=== PATIENT | male | born 1950 | race Caucasian/White ===

== ENCOUNTER 2018-09-30 14:11 | Emergency (ER) | payer MEDICARE ==
[~2018-09-30 14:11] MED LIST: PANT40TA PO
[2018-09-30] MEDS ORDERED: TETANUS/DIPHTHERIA TOXOID [ADULT] 0.5 ML VIAL IM ONE (14:50)
[2018-09-30] MEDS ORDERED: LIDOCAINE HCL 1% 20 ML VIAL ONE (14:50)
== END 2018-09-30 15:51 | disposition home or self-care (01) ==
LOC: EDH 14:11
DX: S01.01XA Laceration without foreign body of scalp, initial encounter (principal); K21.9 Gastro-esophageal reflux disease without esophagitis; Z87.891 Personal history of nicotine dependence; W22.8XXA Striking against or struck by other objects, initial encounter; Y93.89 Activity, other specified; Y92.098 Other place in other non-institutional residence as the place of occurrence of the external cause; Y99.8 Other external cause status
CPT/HCPCS: 12002; 70450; 90471; 90714

== ENCOUNTER 2018-12-09 19:17 | Emergency (ER) | payer MEDICARE ==
[2018-12-09] MEDS ORDERED: METOCLOPRAMIDE 10 MG/2 ML VIAL ONE (19:55)
[2018-12-09] MEDS ORDERED: ONDANSETRON HCL 4 MG/2 ML VIAL ONE (19:56)
[2018-12-09] MEDS ORDERED: FAMOTIDINE/PF 20 MG/2 ML VIAL IV ONE (19:56)
[2018-12-09 20:02] LABS: BASOPHILS % (AUTO) 0.3 % (0.0-5.0); EOSINOPHILS % (AUTO) 0.7 % (0.0-8.0); HEMATOCRIT 47.7 % (42-54); LYMPHOCYTES % (AUTO) 3.9 % (21.0-51.0); MEAN CORPUSCULAR HEMOGLOBIN 28.4 pg (27.0-33.0); MEAN CORPUSCULAR HGB CONC 33.5 g/dL (32.0-36.0); MEAN CORPUSCULAR VOLUME 84.9 fL (79-99); MONOCYTES % (AUTO) 3.9 % (3.0-13.0); NEUTROPHILS % (AUTO) 91.2 % (40.0-77.0); PLATELET COUNT (AUTO) 199 K/uL (130-400); RED BLOOD CELL COUNT(AUTO) 5.62 MIL/uL (4.50-6.20); RED CELL DISTRIBUTION WIDTH 13.9 % (11.0-15.5); WHITE BLOOD COUNT (AUTO) 12.6 K/uL (4.8-10.8)
[2018-12-09] MEDS ORDERED: PANTOPRAZOLE 40 MG/VIAL IVP ONE (20:05)
[2018-12-09] MEDS ORDERED: SODIUM CHLORIDE 0.9% 1000ML 1,000 ML IV ONE ×2 (20:06→20:59)
[2018-12-09 20:15] LABS: CREATININE 1.1 mg/dL (0.5-1.5); POTASSIUM 3.8 mmol/L (3.5-5.1)
[2018-12-09 20:21] LABS: ALBUMIN 3.9 g/dL (3.5-5.0); BILIRUBIN,TOTAL 1.1 mg/dL (0.2-1.0); TOTAL PROTEIN, SERUM 7.4 g/dL (6.0-8.3)
[2018-12-09 20:24] LABS: INR 0.98 (0.85-1.15); PARTIAL THROMBOPLASTIN TIME 26.4 SEC (26.3-35.5); PROTHROMBIN TIME 10.3 SEC (9.6-11.6)
[2018-12-09 20:42] LABS: APPEARANCE,URINE Clear (CLEAR); BILIRUBIN,URINE Negative (NEGATIVE); COLOR,URINE Dark Yellow (YELLOW); GLUCOSE, URINE (UA) 250 mg/dL (NEGATIVE); KETONES,URINE Negative (NEGATIVE); LEUKOCYTE ESTERASE ,URINE Trace (NEGATIVE); NITRATE,URINE Negative (NEGATIVE); OCCULT BLOOD,URINE Negative (NEGATIVE); PH,URINE 8.5 (5.0-8.0); PROTEIN,URINE Trace mg/dL (NEGATIVE)
[2018-12-09] MEDS ORDERED: ACETAMINOPHEN EXTRA STRENGTH 500 MG TABLET ONE (21:00)
[2018-12-09 21:02] LABS: BACTERIA,URINE Rare /HPF (None Seen); RBC,URINE None Seen /HPF (0-1); SQUAMOUS EPITHELIAL CELL,UR None Seen /HPF (0-2)
[2018-12-09] MEDS ORDERED: CEFTRIAXONE SODIUM 1 GM ONE (21:40)
== END 2018-12-09 23:12 | disposition home or self-care (01) ==
LOC: EDH 19:17
DX: E86.9 Volume depletion, unspecified (principal); R11.2 Nausea with vomiting, unspecified; R19.7 Diarrhea, unspecified; R82.71 Bacteriuria; K21.9 Gastro-esophageal reflux disease without esophagitis; Z72.0 Tobacco use
CPT/HCPCS: 36415; 80053; 81001; 82550; 83605 ×2; 83690; 83735; 84484; 85025; 85610; 85730; 96361; 96374; 96375; 99285; C9113; J0696; J2405; J2765; J3490; J7030 ×2

== ENCOUNTER 2019-07-31 16:05 | Emergency (ER) | payer MEDICARE ==
[2019-07-31 16:33] LABS: BASOPHILS % (AUTO) 0.6 % (0.0-5.0); EOSINOPHILS % (AUTO) 3.2 % (0.0-8.0); HEMATOCRIT 43.5 % (42-54); MEAN CORPUSCULAR HGB CONC 33.1 g/dL (32.0-36.0); MEAN CORPUSCULAR VOLUME 84.5 fL (79-99); MONOCYTES % (AUTO) 8.1 % (3.0-13.0); NEUTROPHILS % (AUTO) 84.7 % (40.0-77.0); PLATELET COUNT (AUTO) 189 K/uL (130-400); RED BLOOD CELL COUNT(AUTO) 5.15 MIL/uL (4.50-6.20); RED CELL DISTRIBUTION WIDTH 13.1 % (11.0-15.5); WHITE BLOOD COUNT (AUTO) 7.2 K/uL (4.8-10.8)
[2019-07-31] MEDS ORDERED: ONDANSETRON HCL 4 MG/2 ML VIAL ONE ×2 (16:37→20:00)
[2019-07-31] MEDS ORDERED: SODIUM CHLORIDE 0.9% 1000ML 1,000 ML IV ONE ×2 (16:38→18:23)
[2019-07-31 16:51] LABS: CREATININE 1.2 mg/dL (0.5-1.5); POTASSIUM 3.8 mmol/L (3.5-5.1)
[2019-07-31 16:59] LABS: ALBUMIN 3.7 g/dL (3.5-5.0); BILIRUBIN,DIRECT 0.1 mg/dL (0.0-0.3); BILIRUBIN,TOTAL 0.4 mg/dL (0.2-1.0); TOTAL PROTEIN, SERUM 7.1 g/dL (6.0-8.3)
[2019-07-31] MEDS ORDERED: ACETAMINOPHEN EXTRA STRENGTH 500 MG TABLET ONE (17:33)
[2019-07-31] MEDS ORDERED: OSELTAMIVIR PHOSPHATE 75 MG CAP ONE (18:22)
[2019-07-31] MEDS ORDERED: KETOROLAC TROMETHAMINE 15MG/ML ONE (18:22)
[2019-07-31 19:03] LABS: BILIRUBIN,URINE Negative (NEGATIVE); COLOR,URINE Yellow (YELLOW); GLUCOSE, URINE (UA) 250 mg/dL (NEGATIVE); KETONES,URINE Negative (NEGATIVE); LEUKOCYTE ESTERASE ,URINE Negative (NEGATIVE); NITRATE,URINE Negative (NEGATIVE); OCCULT BLOOD,URINE Negative (NEGATIVE); PH,URINE 5.5 (5.0-8.0); PROTEIN,URINE POS 1+ mg/dL (NEGATIVE); UROBILINOGEN,URINE 0.2 mg/dL (0.2-1.0)
[2019-07-31 19:29] LABS: APPEARANCE,URINE SLIGHTLY CLOUDY (CLEAR)
[2019-07-31 19:33] LABS: AMORPHOUS SEDIMENT,UR Few /LPF (None Seen); BACTERIA,URINE Rare /HPF (None Seen); MUCUS,URINE Few LPF (None Seen); RBC,URINE None Seen /HPF (0-1); SQUAMOUS EPITHELIAL CELL,UR None Seen /HPF (0-2); WBC,URINE 0-1 /HPF (0-1)
== END 2019-07-31 21:35 | disposition home or self-care (01) ==
LOC: EDH 16:05
DX: J09.X2 Influenza due to identified novel influenza A virus with other respiratory manifestations (principal); E86.0 Dehydration; R11.2 Nausea with vomiting, unspecified; K21.9 Gastro-esophageal reflux disease without esophagitis
CPT/HCPCS: 36415; 80048; 80076; 81001; 82550; 83605; 83690; 84484; 85025; 87040; 87804 ×2; 93005; 96361; 96374; 96375; 96376; 99285; J1885; J2405 ×2; J7030 ×2

== ENCOUNTER → 2023-09-22 | Outpatient (CLI) | payer MEDICARE | END | disposition home or self-care (01) | LOC: SHCH 15:27 | PROVIDERS: ATTEND Internal Medicine Cardiovascular Disease | DX: I95.1 Orthostatic hypotension (principal) | CPT/HCPCS: 93306 ==

== ENCOUNTER 2025-05-12 09:48 | Inpatient (IN) | payer MEDICARE ==
[~2025-05-12] VITALS: Ht 200.7 cm; Wt 93.9 kg
[2025-05-12 10:12] LABS: IMMATURE GRANULOCYTE ABSOLUTE 0.05 K/uL (0-1); NUCLEATED RED BLOOD CELLS 0.0 % (0.0-0.19); PLATELET COUNT (AUTO) 205 K/uL (130-400); RED BLOOD CELL COUNT(AUTO) 5.26 MIL/uL (4.50-6.20); RED CELL DISTRIBUTION WIDTH 13.0 % (11.0-15.5); WHITE BLOOD COUNT (AUTO) 8.4 K/uL (4.8-10.8)
[2025-05-12 10:15] LABS: GLUCOSE, URINE (UA) 200 mg/dL (NEGATIVE); LEUKOCYTE ESTERASE ,URINE 500 Leu/uL (NEGATIVE); NITRATE,URINE NEGATIVE (NEGATIVE); OCCULT BLOOD,URINE SMALL (NEGATIVE)
[2025-05-12 10:16] LABS: ADD UA MICROSCOPIC YES; APPEARANCE,URINE HAZY (CLEAR)
--- NOTE | 2025-05-12 10:17 | ERN ---
General Chief Complaint: Urinary Frequency Stated Complaint: URINARY FREQUENCY Time Seen by MD: 09:50 Source: patient History of Present Illness Initial Comments Patient is a 74-year-old gentleman coming in complaining of burning sensation on urinating. Per patient this has been ongoing for seven days. He states that he also feels an urgency and has been urinating more frequently. He also has been feeling chills. Allergies: Coded Allergies: No Known Drug Allergies (Unverified Allergy, Unknown, 02/01/17) Home Meds Reported Medications Pantoprazole Sodium (Protonix) 40 Mg Tablet.dr, 40 MG PO AM, TAB 02/01/17 Past Medical History Past Medical History: GERD, High Cholesterol, Other Medical History Other: bph Past Surgical History: Other Surgical History Other: hernia sx ROS Dictation CONSTITUTIONAL: No chills, no fever, no weakness, no diaphoresis, no malaise. HEAD/FACE: No signs of trauma. EENT: No eye pain, no blurred vision, no tearing, no double vision, no ear pain, no ear discharge, no nose pain, no nasal congestion, no throat pain, no throat swelling, no mouth pain. RESPIRATORY: No cough, no orthopnea, no SOB, no stridor, no wheezing. CARDIOVASCULAR: No chest pain, no edema, no palpitations, no syncope. GASTROINTESTINAL/ABDOMINAL: No abdominal pain, no constipation, no diarrhea, no nausea, no vomiting. GENITOURINARY: No abnormal discharge, dysuria, frequent urination, no hematuria. No complaints of pain in the genitals. MUSCULOSKELETAL: No back pain, no gout, no joint pain, no joint swelling, no muscle pain, no muscle stiffness, no neck pain. INTEGUMENTARY: No change in color, no change in hair/nails, no dryness, no lesion, no lumps, no rash. NEUROLOGICAL/PSYCH: No anxiety, not depressed, no emotional problem, no headache, no numbness, no pre-existing deficit, no history of seizures, no tremors, no weakness. HEMATOLOGIC/LYMPHATIC: Not anemic, no history of blood clots, no apparent bleeding, no bruising, glands not swollen. All Systems Negative, Except as Noted. Physical Exam Physical Exam Dictation VITAL SIGNS: Reviewed. GENERAL APPEARANCE: Alert, oriented x3, no acute distress, obese. HEAD AND FACE: Non-traumatic. EYES: PERRL, pink conjunctivas, eyelid no trauma, anterior chamber clear. EARS: Pinnas intact and no signs of trauma or erythema. Ear canals clear and no discharge. TMs no erythema. NOSE: No discharge, no bleeding. OROPHARYNX: Mouth normal, teeth no caries, tongue pink. Pharynx clear, no erythema. Tonsils no exudates, no abscesses noted. Mucous membrane moist. NECK: Supple, non-tender, no thyromegaly, no masses, no JVD, no bruits. BREAST: Deferred. CHEST: No tenderness, no crepitus, no paradoxical movement, no retractions. LUNGS: Clear, well-ventilated, symmetric, no rales, no wheezing, no rhonchi, no stridor, good breath sounds bilaterally. HEART: Regular rate, regular rhythm, no murmur, no gallops. VASCULAR: No peripheral edema. ABDOMEN: Soft, positive bowel sounds, nondistended, no guarding, nontender, no rebound, no masses no hepatomegaly, no splenomegaly, no Huber's sign, no hernias. RECTAL: Deferred. GENITAL: Deferred. NEUROLOGICAL: Normal speech, gross motor function intact, gross sensory function intact. MUSCULOSKELETAL: Neck nontender, full range of motion, back nontender, full range of motion. EXTREMITIES: Nontender, full range of motion. SKIN: Color pink, dry, no turgor, no rash, no lacerations, no abrasions, no contusions. LYMPHATICS: Deferred. Results Laboratory and Microbiology Lab and Micro Result Laboratory Tests Test 05/12/25 10:04 05/12/25 10:07 White Blood Count 8.4 K/uL (4.8-10.8) Red Blood Count 5.26 MIL/uL (4.50-6.20) Hemoglobin 15.1 g/dL (14.0-18.0) Hematocrit 44.3 % (42-54) Mean Corpuscular Volume 84.2 fL (79-99) Mean Corpuscular Hemoglobin 28.7 pg (27.0-33.0) Mean Corpuscular Hemoglobin Concent 34.1 g/dL (32.0-36.0) Red Cell Distribution Width 13.0 % (11.0-15.5) Platelet Count 205 K/uL (130-400) Mean Platelet Volume 10.7 fL (7.5-10.5) H Immature Granulocyte % (Auto) 0.6 % (0-1) Neutrophils (%) (Auto) 76.3 % (40.0-77.0) Lymphocytes (%) (Auto) 12.0 % (21.0-51.0) L Monocytes (%) (Auto) 9.9 % (3.0-13.0) Eosinophils (%) (Auto) 0.5 % (0.0-8.0) Basophils (%) (Auto) 0.7 % (0.0-5.0) Neutrophils # (Auto) 6.4 K/uL (1.8-7.7) Lymphocytes # (Auto) 1.0 K/uL (1.0-4.8) Monocytes # (Auto) 0.8 K/uL (0.1-1.0) Eosinophils # (Auto) 0.04 K/uL (0.00-0.70) Basophils # (Auto) 0.06 K/uL (0.00-0.20) Absolute Immature Granulocyte (auto 0.05 K/uL (0-1) Nucleated Red Blood Cells 0.0 % (0.0-0.19) Sodium Level 137 mmol/L (136-145) Potassium Level 4.4 mmol/L (3.5-5.1) Chloride Level 98 mmol/L (101-111) L Carbon Dioxide Level 29 mmol/L (21-32) Blood Urea Nitrogen 13 mg/dL (7-18) Creatinine 1.2 mg/dL (0.5-1.3) Glomerular Filtration Rate Calc 64 mL/min (>90) Random Glucose 111 mg/dL (70-105) H Total Calcium 8.9 mg/dL (8.5-10.1) Urine Color YELLOW (YELLOW) Urine Appearance HAZY (CLEAR) Urine pH 7.5 (5.0-8.0) Urine Specific [place] 1.014 (1.001-1.031) Urine Protein 20 mg/dL (NEGATIVE) H Urine Glucose (UA) 200 mg/dL (NEGATIVE) H Urine Ketones NEGATIVE mg/dL (NEGATIVE) Urine Occult Blood SMALL (NEGATIVE) H Urine Nitrate NEGATIVE (NEGATIVE) Urine Bilirubin NEGATIVE mg/dL (NEGATIVE) Urine Urobilinogen 2.0 mg/dL (0.2-1.0) H Urine Leukocyte Esterase 500 Son/uL (NEGATIVE) H Urine RBC 6-10 /HPF (0-1) H Urine WBC TNTC /HPF (0-1) H Urine Squamous Epithelial Cells RARE /HPF (0-2) Urine Bacteria MOD /HPF (None Seen) Labs Reviewed?: Yes MDM MDM: Differential diagnosis: UTI, sepsis, weakness, dehydration, Rationale: Tests considered and ordered secondary to shared decision making include: Previous outside records reviewed: Old ER visits. Risk of complication and/or morbidity or mortality of patient management: None Medications-Per medication reconciliation Need for hospitalization: Patient does meet criteria for hospitalization. Need for emergency major/minor surgery: No There are no social concerns with this patient. Prescription drug management Prescriptions will include symptomatic care Patient's prior external medical records from other ER visits were reviewed by me as indicated. Prior testing and results from previous visits were reviewed. Prior tests were taken into account with medical decision making and resource utilization, independent historian/historians were used to obtain complete medical history. I independently interpreted the test that were performed, results were reviewed by me and considered findings on radiology if ordered. Medical management and examination interpretation discussions were had by me with other qualified healthcare professionals as indicated for the patient's care. Patient will be admitted under the care of hospitalist group for ongoing management. ED Course Orders Procedure Category Date Status Time Cbc With Differential LAB 05/12/25 Complete 09:54 Urinalysis Profile LAB 05/12/25 Complete 09:54 Basic Metabolic Panel LAB 05/12/25 Complete 09:54 Culture Urine JESSE 05/12/25 In Process 10:16 Ceftriaxone 1g Vial PHA 05/12/25 In Process (Rocephine 1g Inj) 11:00 0.9%Nacl 1000ml (Ns PHA 05/12/25 In Process 1000ml) 11:00 Current Medications Medications (Trade) Dose Ordered Sig/Chandan Route PRN Reason Start Time Stop Time Status Last Admin Dose Admin Ceftriaxone Sodium (ROCEphine 1G INJ) 1 gm ONCE ONCE IVPB 05/12/25 11:00 05/12/25 11:01 Sodium Chloride 1,000 ml @ 0 mls/hr ONCE ONCE IV 05/12/25 11:00 05/12/25 11:01 Vital Signs Date Time Temp Pulse Resp B/P (MAP) Pulse Ox O2 Delivery O2 Flow Rate FiO2 05/12/25 09:56 98.1 64 18 148/82 98 Room Air* 0 21 05/12/25 09:50 98.1 64 18 148/82 98 Room Air 0 DX & DISP Disposition: Inpatient Decision to Admit Time: 10:44 Departure Impression: Primary Impression: UTI (urinary tract infection) Additional Impressions: Dehydration, Weakness Condition: Stable Referrals: JOSAFAT ROJO MD (PCP) BENSON VENTURA MD May 12, 2025 10:17
[2025-05-12 10:20] LABS: CREATININE 1.2 mg/dL (0.5-1.3); GLOMERULAR FILTR. RATE CALC 64.0 mL/min (>90); GLUCOSE,RANDOM 111.0 mg/dL (70-105); SODIUM SERUM 137.0 mmol/L (136-145); UREA NITROGEN, BLOOD 13.0 mg/dL (7-18)
[2025-05-12 10:20] LABS: SQUAMOUS EPITHELIAL CELL,UR RARE /HPF (0-2)
[2025-05-12] MEDS: 0.9%NACL 1000ML 1,000 ML IV ONE (11:06)
[2025-05-12] MEDS: LACTATED RINGERS 1000ML 1,000 ML IV SCH (11:12)
--- NOTE | 2025-05-12 11:22 | HP ---
[facility] HISTORY [facility] PHYSICAL Date of Service: May 12, 2025 Time of Service: 11:16 HISTORY OF PRESENT ILLNESS: Date of service: 05/12/2025, patient was seen in ER room 12 74-year-old male with underlying history of orthostasis, GERD, BPH, who presented to the ER for further evaluation of urinary frequency, dysuria, lower back pain and suprapubic discomfort ongoing for the past 5-7 days. Symptoms have been progressive and patient reports having subjective chills and family reports that he was having low-grade fever yesterday. Oral intake has been poor and patient reports having nausea as well. Denies previous history of UTI. Reports that he was recently diagnosed with BPH and was started on Flomax couple of weeks ago. Patient denies any previous history of hypertension. Reports having history of orthostasis and has been maintained on outpatient treatment with fludrocortisone. Denies any active chest pain or shortness of breath. On presentation to the hospital, patient was noted to be afebrile with T-max of 98.1 F, heart rate of 64, blood pressure 148/82. Labs on presentation showed WBC count of 8400, hemoglobin of 15.1, platelet count of 544810. BMP showed sodium of 137, potassium 4.4, chloride of 98, BUN of 13, creatinine 1.2, blood glucose of 111. Urinalysis showed findings of leukocyte esterase noted to be positive, significant pyuria and bacteriuria. Patient will be admitted for further treatment management of complicated UTI. Patient started on IV hydration due to underlying nausea, will be started on IV antibiotics. We will obtain a further evaluation with CT abdomen pelvis without contrast for further evaluation of complicated UTI. REVIEW OF SYSTEMS CONSTITUTIONAL: Denies fevers, chills, or night sweats. No unintentional weight loss reported. NEUROLOGICAL: Denies headache, amaurosis fugax, motor weakness, sensory defici t, vertigo/spinning sensation, gait abnormalities, or tremors. ENT: No hearing loss, otalgia, otorrhea, rhinitis, rhinorrhea, hoarseness, or sore throat. CARDIOVASCULAR: Denies any exertional angina, dyspnea on exertion, orthopnea, paroxysmal nocturnal dyspnea, palpitations, life-threatening arrhythmias, claudication. PULMONARY: Denies any shortness of breath, cough, phlegm/sputum, hemoptysis, pleuritic chest pain. SLEEP: Denies morning headaches, daytime somnolence or napping. Denies difficulty falling asleep, staying asleep, waking from sleep. Denies knowledge of snoring. GASTROINTESTINAL: patient and family reports having nausea GENITOURINARY: suprapubic pain, urinary frequency, urgency, incontinence ENDOCRINOLOGIC: Denies polyuria, polydipsia, polyphagia or heat/cold intolerances. HEMATOLOGIC: Denies thrombophilia/previous clots, or coagulopathy/bleeding disorders. ONCOLOGIC: Denies personal history of malignancy. DERMATOLOGIC: Denies rashes or pruritus. PSYCHIATRIC: Denies any suicidal or homicidal ideation. Denies hallucinations. PAST MEDICAL HISTORY: Orthostasis maintained on outpatient with fludrocortisone, BPH, GERD PAST SURGICAL HISTORY: Right inguinal hernia repair previously PAST SOCIAL HISTORY: Smokes cigars where he rarely, denies significant alcohol consumption, denies illicit drug use FAMILY HISTORY: Denies pertinent family history Allergies: Patient has no known drug allergies, patient reports having no antibiotic allergies Home medications: Patient has been maintained on outpatient Flomax, fludrocortisone, Protonix, we will try to obtain home medication list to verify dosage Coded Allergies: No Known Drug Allergies (Unverified Allergy, Unknown, 02/01/17) PHYSICAL EXAM GENERAL APPEARANCE: The patient is awake, alert, and oriented, in no acute cardiopulmonary distress. NEUROLOGICAL: Cranial nerves II-XII grossly intact. Motor is 5/5 in bilateral upper and lower extremities proximal to distal. No sensory deficits. HEENT: Face is symmetric. Pupils are equal and reactive. Extraocular movements are intact. NECK: Supple. No JVD. No thyromegaly. No submental, submandibular, pre- /postauricular, occipital or supraclavicular lymphadenopathy. CHEST: Normal chest expansion. No Telemetry. LUNGS: Absence of any rales, rhonchi or any wheezing. CARDIOVASCULAR: Regular. S1 and S2 normal. No appreciable rubs, murmurs or gallops. ABDOMEN: Soft, nontender, and nondistended. There is no rebound, voluntary guarding, or rigidity. Mild tenderness to palpation of the suprapubic region, no CVA tenderness noted : Deferred. No [place]. EXTREMITIES: Non-edematous and not cyanotic. No clubbing. Good capillary refill. SKIN: No skin breakdown. Vital Sign (Last 24 Hours) 05/12/25 09:56 Temp 98.1 Pulse 64 Resp 18 B/P (MAP) 148/82 Pulse Ox 98 O2 Delivery Room Air* O2 Flow Rate 0 FiO2 21 LABS: Laboratory: Test 05/12/25 10:07 05/12/25 10:04 Range/Units Urine Color YELLOW YELLOW Urine Appearance HAZY CLEAR Urine pH 7.5 5.0-8.0 Urine Specific [place] 1.014 1.001-1.031 Urine Protein 20 H NEGATIVE mg/dL Urine Glucose (UA) 200 H NEGATIVE mg/dL Urine Ketones NEGATIVE NEGATIVE mg/dL Urine Occult Blood SMALL H NEGATIVE Urine Nitrate NEGATIVE NEGATIVE Urine Bilirubin NEGATIVE NEGATIVE mg/dL Urine Urobilinogen 2.0 H 0.2-1.0 mg/dL Urine Leukocyte Esterase 500 H NEGATIVE Son/uL Urine RBC 6-10 H 0-1 /HPF Urine WBC TNTC H 0-1 /HPF Urine Squamous Epithelial Cells RARE 0-2 /HPF Urine Bacteria MOD None Seen /HPF White Blood Count 8.4 4.8-10.8 K/uL Red Blood Count 5.26 4.50-6.20 MIL/uL Hemoglobin 15.1 14.0-18.0 g/dL Hematocrit 44.3 42-54 % Mean Corpuscular Volume 84.2 79-99 fL Mean Corpuscular Hemoglobin 28.7 27.0-33.0 pg Mean Corpuscular Hemoglobin Concent 34.1 32.0-36.0 g/dL Red Cell Distribution Width 13.0 11.0-15.5 % Platelet Count 205 130-400 K/uL Mean Platelet Volume 10.7 H 7.5-10.5 fL Immature Granulocyte % (Auto) 0.6 0-1 % Neutrophils (%) (Auto) 76.3 40.0-77.0 % Lymphocytes (%) (Auto) 12.0 L 21.0-51.0 % Monocytes (%) (Auto) 9.9 3.0-13.0 % Eosinophils (%) (Auto) 0.5 0.0-8.0 % Basophils (%) (Auto) 0.7 0.0-5.0 % Neutrophils # (Auto) 6.4 1.8-7.7 K/uL Lymphocytes # (Auto) 1.0 1.0-4.8 K/uL Monocytes # (Auto) 0.8 0.1-1.0 K/uL Eosinophils # (Auto) 0.04 0.00-0.70 K/uL Basophils # (Auto) 0.06 0.00-0.20 K/uL Absolute Immature Granulocyte (auto 0.05 0-1 K/uL Nucleated Red Blood Cells 0.0 0.0-0.19 % Sodium Level 137 136-145 mmol/L Potassium Level 4.4 3.5-5.1 mmol/L Chloride Level 98 L 101-111 mmol/L Carbon Dioxide Level 29 21-32 mmol/L Blood Urea Nitrogen 13 7-18 mg/dL Creatinine 1.2 0.5-1.3 mg/dL Glomerular Filtration Rate Calc 64 >90 mL/min Random Glucose 111 H 70-105 mg/dL Total Calcium 8.9 8.5-10.1 mg/dL Current Medications Medications (Trade) Dose Ordered Sig/Chandan Route PRN Reason Start Time Stop Time Status Last Admin Dose Admin Acetaminophen (TYLenol 325MG TAB) 650 mg Q6H PRN PO MILD PAIN (1-3) 05/12/25 11:00 05/12/25 11:09 DC Acetaminophen (TYLenol 325MG TAB) 650 mg Q6H PRN PO MILD PAIN (1-3) 05/12/25 11:30 06/11/25 11:29 Ceftriaxone Sodium (ROCEphine 1G INJ) 1 gm BID IVPB 05/12/25 21:00 05/22/25 20:59 Enoxaparin Sodium (Lovenox) 30 mg DAILY SQ 05/13/25 09:00 06/12/25 08:59 Hydralazine HCl (APRESOLine 20MG INJ) 5 mg Q6H PRN IV ADMINISTER FOR SBP > 170 05/12/25 11:30 06/11/25 11:29 Lactated Ringer's 1,000 ml @ 75 mls/hr [id number] IV 05/12/25 11:00 06/11/25 10:59 05/12/25 11:12 75 MLS/HR Ondansetron HCl (zoFRAN 4MG INJ) 4 mg Q6H PRN IVP NAUSEA/VOMITING 05/12/25 11:30 06/11/25 11:29 Pantoprazole Sodium (PROTonix 40MG TAB) 40 mg DAILY PO 05/13/25 09:00 06/12/25 08:59 Phenazopyridine HCl (PYRIdium HCL 200 MG TAB) 200 mg Q8H PRN PO bladder spams 05/12/25 11:30 06/11/25 11:29 Tamsulosin HCl (FloMAX) 0.4 mg HS PO 05/12/25 21:00 06/11/25 20:59 DIAGNOSTICS / RADIOLOGY: CT abdomen/ pelvis without contrast is pending ASSESSMENT: Complicated urinary tract infection, POA Poor oral intake with associated nausea, POA History of orthostasis, POA BPH, POA GERD, POA PLAN: Patient will be admitted to medical-surgical floor under telemetry monitoring Patient received 1 g of IV Rocephin in the ER, we will follow up urine culture, we will check CRP and procalcitonin, I will escalate antibiotics to IV Zosyn as procalcitonin is significantly elevated to cover for any MDR/ Enterococcus, ant ibiotics can be deescalated in 48-72 hours based on urine culture report Obtain a CT abdomen pelvis without contrast for further evaluation of the bladder and kidneys, we will assess for any complicating factors contributing towards the UTI We will start patient on IV hydration with lactated Ringer's at 75 mL/hour until nausea improves Zofran 4 mg IV q.6 hours PRN for nausea/vomiting Consultation with Infectious Disease will be requested Anticipate at least 10-14 day course of antibiotic therapy for management of UTI Patient to continue with home dose of Flomax for management of BPH Patient to continue with fludrocortisone for management of orthostasis Patient to continue with GI prophylaxis Protonix We will maintain patient on DVT prophylaxis with Lovenox Anticipate hospitalization for at least 48 hours pending urine culture report, all labs will be repeated in the morning Plan of care was discussed with patient family at bedside, Rohan Romeo MD Advanced Care Planning: Which of the following were discussed: Hospice care: Yes __ No _X_ Therapeutic options: Yes _X_ No __ Advance directives: Yes __X No __ Other discussions: Discussed with who?: Patient Voluntary nature of this service was explained to the patient? Yes _x_ No __ Amount of time spent: 20 minutes ROHAN ROMEO MD May 12, 2025 11:22
[2025-05-12 11:25] LABS: LACTATE DEHYDROGENASE 178.0 U/L (81-234)
[2025-05-12] MEDS: PHENAZOpyridine HCL 200 MG TAB 200 MG TABLET PO PRN (11:30)
[2025-05-12 11:48] LABS: INR 1.06 (0.85-1.15)
[2025-05-12 12:25] LABS: ASPARTATE AMINOTRANSFERASE 17.0 U/L (10-37); TOTAL PROTEIN, SERUM 7.4 g/dL (6.0-8.3)
[2025-05-12] MEDS: ZOSYN 3.375GM +NS 50ML IVPB SCH ×2 (15:14→21:30)
[2025-05-12] MEDS ORDERED: TAMS-55 PO (15:18)
[2025-05-12] MEDS ORDERED: FLUD0.1T2 PO (15:19)
--- NOTE | 2025-05-12 15:30 | NUR ---
received from er via [facility] admit to dr rodríguez dx complicate uti. verbally responsive denies pain sl to rac intact aox4 stable cond tele applied
--- NOTE | 2025-05-12 15:30 | NUR ---
REPORT GIVEN TO JOHN MIDDLETON AT 1525, PT AAOX4, PT IS STABLE NO DISTRESS VITALS WNL NO C/O PAIN NOW, AT BEDSIDE WITH PERSONAL BELONGINGS.
[2025-05-12 15:35] VITALS: BP 142/78; PULSE 68; RESP 18; TEMP 97.5
[2025-05-12 16:00] VITALS: BP 144/78; PULSE 65; RESP 18; TEMP 97.7
[2025-05-12 19:00] VITALS: O2SAT 96
[2025-05-12 20:00] VITALS: BP 144/80; PULSE 66; RESP 18; TEMP 98.1
[2025-05-13] VITALS (8 sets, daily range): BP systolic 143–173; BP diastolic 62–101; PULSE 62–76; RESP 18–19; TEMP 97.4–98; O2SAT 98
--- NOTE | 2025-05-13 00:21 | CONS ---
INFECTIOUS DISEASE CONSULTATION DATE OF SERVICE: 05/12/2025 REQUESTING PHYSICIAN: Dr. Rohan Romeo. REASON FOR CONSULTATION: UTI and sepsis. HISTORY OF PRESENT ILLNESS: A 74-year-old male with obesity, BPH, and hypertension, who presents to hospital with urinary symptoms. The patient continues to be having dyspnea and urinary frequency for the past 7 days. The patient also has subjective fever and chills. Urinalysis was positive for WBC too numerous to count and leukocytes of 500. The patient also complained of decreased oral intake. Procalcitonin came back positive at 3.11. No sick contacts. Denies cough, shortness of breath, no palpitations or orthopnea. PAST MEDICAL HISTORY: Hypertension. Obesity. BPH. PAST SURGICAL HISTORY: Right inguinal hernia repair. ALLERGIES: No known drug allergies. CURRENT MEDICATIONS: Reviewed. SOCIAL HISTORY: He is . Smokes, but no alcohol or illicit drug use. FAMILY HISTORY: Noncontributory. REVIEW OF SYSTEMS: CONSTITUTIONAL: Positive for subjective fever and chills. No weight loss or night sweats. EYES: No eye pain. No photophobia or diplopia. HENT: No sore throat. No rhinorrhea or earache. NECK: No neck pain or neck swelling. RESPIRATORY: No cough. No hemoptysis or pleuritic pain. CARDIOVASCULAR: No chest pain, palpitations, or orthopnea. GASTROINTESTINAL: Denies nausea, vomiting or abdominal pain. GENITOURINARY: Positive for dysuria and urinary frequency. No hematuria. CENTRAL NERVOUS SYSTEM: No headache, dyspnea, or slurred speech. PSYCHIATRY: No depression, no suicidal ideation. MUSCULOSKELETAL: No joint pain or joint swelling. PHYSICAL EXAMINATION: GENERAL: Elderly male, awake. VITAL SIGNS: Temperature 98.1, pulse 72, respiratory rate 12, BP 182/94. EYES: No icterus. Pupils are equal and reactive. HENT: No oral thrush seen. Moist oral mucosa. NECK: Supple. No JVD or thyromegaly. LUNGS: Good air entry. No rales, no rhonchi. CARDIOVASCULAR SYSTEM: S1 and S2. Regular. No murmur heard. ABDOMEN: Full, soft, nontender. Bowel sound is present. CENTRAL NERVOUS SYSTEM: Awake, alert, oriented x 3. No focal deficits. SKIN: No rashes, no itchiness. LYMPHATIC: No peripheral lymphadenopathy. MUSCULOSKELETAL: No joint swelling, erythema or tenderness. LABORATORY DATA: Procalcitonin 3.11. Sodium 137, potassium 4.4, BUN 13, creatinine 1.2. WBC 8.5, hemoglobin 15.1, platelets 211. Urinalysis: WBC too numerous to count, leukocyte esterase 500. RADIOLOGY: CT of the abdomen and pelvis ____. ASSESSMENT: A 74-year-old male presents with subjective urinary symptoms. CURRENT PROBLEMS: Include: Possible gram-negative sepsis. Urinary tract infection. Hypertension. Obesity. PLAN: Continue Zosyn. Follow up CT scan results. Continue Flomax. Continue pain management. Follow up cultures. Monitor electrolytes. Continue antihypertensives. The patient will be followed closely. Thank you for allowing me to participate in the care of this patient. TID: [id number] RECEIPT: [id number]
[2025-05-13 04:40] LABS: IMMATURE GRANULOCYTE ABSOLUTE 0.03 K/uL (0-1); NUCLEATED RED BLOOD CELLS 0.0 % (0.0-0.19); PLATELET COUNT (AUTO) 192 K/uL (130-400); RED BLOOD CELL COUNT(AUTO) 4.78 MIL/uL (4.50-6.20); RED CELL DISTRIBUTION WIDTH 13.0 % (11.0-15.5); WHITE BLOOD COUNT (AUTO) 6.3 K/uL (4.8-10.8)
[2025-05-13 04:59] LABS: CREATININE 1.1 mg/dL (0.5-1.3); GLOMERULAR FILTR. RATE CALC 71.0 mL/min (>90); GLUCOSE,RANDOM 101.0 mg/dL (70-105); SODIUM SERUM 139.0 mmol/L (136-145); UREA NITROGEN, BLOOD 13.0 mg/dL (7-18)
[2025-05-13] MEDS: FLUDROCORTISONE ACETATE 0.1 MG TABLET PO SCH (08:56)
[2025-05-13] MEDS: ENOXAPARIN SODIUM 30 MG/0.3 ML SQ SCH (08:57)
--- NOTE | 2025-05-13 12:13 | PN ---
[facility] PROGRESS NOTE Date of Service: May 13, 2025 Time of Service: 12:05 SUBJECTIVE: A 74-year-old male with underlying history of orthostasis, GERD, BPH, who presented to the ER for further evaluation of urinary frequency, dysuria, lower back pain and suprapubic discomfort ongoing for the past 5-7 days. Symptoms have been progressive and patient reports having subjective chills and family reports that he was having low-grade fever yesterday. Oral intake has been poor and patient reports having nausea as well. Denies previous history of UTI. Reports that he was recently diagnosed with BPH and was started on Flomax couple of weeks ago. Patient denies any previous history of hypertension. Reports having history of orthostasis and has been maintained on outpatient treatment with fludrocortisone. Denies any active chest pain or shortness of breath. On presentation to the hospital, patient was noted to be afebrile with T-max of 98.1 F, heart rate of 64, blood pressure 148/82. Labs on presentation showed WBC count of 8400, hemoglobin of 15.1, platelet count of 483899. BMP showed sodium of 137, potassium 4.4, chloride of 98, BUN of 13, creatinine 1.2, blood glucose of 111. Urinalysis showed findings of leukocyte esterase noted to be positive, significant pyuria and bacteriuria. Patient will be admitted for further treatment management of complicated UTI. Patient started on IV hydration due to underlying nausea, will be started on IV antibiotics. We will obtain a further evaluation with CT abdomen pelvis without contrast for further evaluation of complicated UTI. 05/13: Patient was seen and examined this morning at bedside. The patient r eports significant improvement in symptoms. The denies chest pain, shortness of breath, nausea, vomiting, fever. and chills. Patient continues on IV Zosyn, as per infectious disease recommendations. CT abdomen and pelvis results are pending. REVIEW OF SYSTEMS CONSTITUTIONAL: Denies fevers, chills, or night sweats. No unintentional weight loss reported. NEUROLOGICAL: Denies headache, amaurosis fugax, motor weakness, sensory de ficit, vertigo/spinning sensation, gait abnormalities, or tremors. ENT: No hearing loss, otalgia, otorrhea, rhinitis, rhinorrhea, hoarseness, or sore throat. CARDIOVASCULAR: Denies any exertional angina, dyspnea on exertion, orthopnea, paroxysmal nocturnal dyspnea, palpitations, life-threatening arrhythmias, claudication. PULMONARY: Denies any shortness of breath, cough, phlegm/sputum, hemoptysis, pleuritic chest pain. GASTROINTESTINAL: patient and family reports having nausea and constipation GENITOURINARY: suprapubic pain, urinary frequency, urgency, incontinence ENDOCRINOLOGIC: Denies polyuria, polydipsia, polyphagia or heat/cold intolerances. HEMATOLOGIC: Denies thrombophilia/previous clots, or coagulopathy/bleeding disorders. ONCOLOGIC: Denies personal history of malignancy. DERMATOLOGIC: Denies rashes or pruritus. PSYCHIATRIC: Denies any suicidal or homicidal ideation. Denies hallucinations. PHYSICAL EXAM GENERAL APPEARANCE: The patient is awake, alert, and oriented, in no acute cardiopulmonary distress. NEUROLOGICAL: Cranial nerves II-XII grossly intact. Motor is 5/5 in bilateral upper and lower extremities proximal to distal. No sensory deficits. HEENT: Face is symmetric. Pupils are equal and reactive. Extraocular movements are intact. NECK: Supple. No JVD. No thyromegaly. No submental, submandibular, pre-/post auricular, occipital or supraclavicular lymphadenopathy. CHEST: Normal chest expansion. No Telemetry. LUNGS: Absence of any rales, rhonchi or any wheezing. CARDIOVASCULAR: Regular. S1 and S2 normal. No appreciable rubs, murmurs or gallops. ABDOMEN: Soft, nontender, and nondistended. There is no rebound, voluntary guarding, or rigidity. Mild tenderness to palpation of the suprapubic region, no CVA tenderness noted : Deferred. No Garay. EXTREMITIES: Non-edematous and not cyanotic. No clubbing. Good capillary refill. SKIN: No skin breakdown. Vital Signs (last 8hr) Date Time Temp Pulse Resp B/P (MAP) Pulse Ox O2 Delivery O2 Flow Rate FiO2 05/13/25 11:26 167/101 05/13/25 09:00 Room Air* 0 21 05/13/25 08:00 97.9 72 18 153/87 96 Room Air LABS: Laboratory: Test 05/13/25 04:15 05/12/25 10:07 05/12/25 10:04 Range/Units White Blood Count 6.3 4.8-10.8 K/uL Red Blood Count 4.78 4.50-6.20 MIL/uL Hemoglobin 13.7 L 14.0-18.0 g/dL Hematocrit 40.1 L 42-54 % Mean Corpuscular Volume 83.9 79-99 fL Mean Corpuscular Hemoglobin 28.7 27.0-33.0 pg Mean Corpuscular Hemoglobin Concent 34.2 32.0-36.0 g/dL Red Cell Distribution Width 13.0 11.0-15.5 % Platelet Count 192 130-400 K/uL Mean Platelet Volume 11.1 H 7.5-10.5 fL Immature Granulocyte % (Auto) 0.5 0-1 % Neutrophils (%) (Auto) 67.7 40.0-77.0 % Lymphocytes (%) (Auto) 16.1 L 21.0-51.0 % Monocytes (%) (Auto) 13.0 3.0-13.0 % Eosinophils (%) (Auto) 1.9 0.0-8.0 % Basophils (%) (Auto) 0.8 0.0-5.0 % Neutrophils # (Auto) 4.3 1.8-7.7 K/uL Lymphocytes # (Auto) 1.0 1.0-4.8 K/uL Monocytes # (Auto) 0.8 0.1-1.0 K/uL Eosinophils # (Auto) 0.12 0.00-0.70 K/uL Basophils # (Auto) 0.05 0.00-0.20 K/uL Absolute Immature Granulocyte (auto 0.03 0-1 K/uL Nucleated Red Blood Cells 0.0 0.0-0.19 % Sodium Level 139 136-145 mmol/L Potassium Level 3.9 3.5-5.1 mmol/L Chloride Level 103 101-111 mmol/L Carbon Dioxide Level 26 21-32 mmol/L Blood Urea Nitrogen 13 7-18 mg/dL Creatinine 1.1 0.5-1.3 mg/dL Glomerular Filtration Rate Calc 71 >90 mL/min Random Glucose 101 70-105 mg/dL Total Calcium 8.2 L 8.5-10.1 mg/dL Procalcitonin 3.10 H 0.05-0.5 ng/mL Urine Color YELLOW YELLOW Urine Appearance HAZY CLEAR Urine pH 7.5 5.0-8.0 Urine Specific [place] 1.014 1.001-1.031 Urine Protein 20 H NEGATIVE mg/dL Urine Glucose (UA) 200 H NEGATIVE mg/dL Urine Ketones NEGATIVE NEGATIVE mg/dL Urine Occult Blood SMALL H NEGATIVE Urine Nitrate NEGATIVE NEGATIVE Urine Bilirubin NEGATIVE NEGATIVE mg/dL Urine Urobilinogen 2.0 H 0.2-1.0 mg/dL Urine Leukocyte Esterase 500 H NEGATIVE Son/uL Urine RBC 6-10 H 0-1 /HPF Urine WBC TNTC H 0-1 /HPF Urine Squamous Epithelial Cells RARE 0-2 /HPF Urine Bacteria MOD None Seen /HPF Erythrocyte Sedimentation Rate 8 0-20 MM/HR Prothrombin Time 11.2 9.6-11.6 SEC Prothromb Time International Ratio 1.06 0.85-1.15 Activated Partial Thromboplast Time 29.2 26.3-35.5 SEC Hemoglobin A1c 5.5 4.0-6.0 % Estimated Average Glucose (eAG) 111 70-126 mg/dL Total Bilirubin 1.4 H 0.2-1.0 mg/dL Direct Bilirubin 0.4 H 0.0-0.3 mg/dL Aspartate Amino Transf (AST/SGOT) 17 10-37 U/L Alanine Aminotransferase (ALT/SGPT) 22 12-78 U/L Alkaline Phosphatase 60 50-136 U/L Lactate Dehydrogenase 178 81-234 U/L C-Reactive Protein, Quantitative 77.30 H 0.5-3.0 mg/L Total Protein 7.4 6.0-8.3 g/dL Albumin 3.7 3.5-5.0 g/dL Thyroid Stimulating Hormone (TSH) 1.81 0.36-3.74 uIU/mL Current Medications Medications (Trade) Dose Ordered Sig/Chandan Route PRN Reason Start Time Stop Time Status Last Admin Dose Admin Acetaminophen (TYLenol 325MG TAB) 650 mg Q6H PRN PO MILD PAIN (1-3) 05/12/25 11:00 05/12/25 11:09 DC Acetaminophen (TYLenol 325MG TAB) 650 mg Q6H PRN PO MILD PAIN (1-3) 05/12/25 11:30 06/11/25 11:29 05/12/25 11:31 Ceftriaxone Sodium (ROCEphine 1G INJ) 1 gm BID IVPB 05/12/25 21:00 05/12/25 11:38 DC Enoxaparin Sodium (Lovenox) 30 mg DAILY SQ 05/13/25 09:00 06/12/25 08:59 05/13/25 08:57 Fludrocortisone Acetate (Fludrocortisone Acetate) 0.1 mg DAILY PO 05/13/25 09:00 06/12/25 08:59 05/13/25 08:56 Hydralazine HCl (APRESOLine 20MG INJ) 5 mg Q6H PRN IV ADMINISTER FOR SBP > 170 05/12/25 11:30 06/11/25 11:29 05/13/25 11:26 Lactated Ringer's 1,000 ml @ 75 mls/hr [id number] IV 05/12/25 11:00 06/11/25 10:59 05/13/25 05:10 Ondansetron HCl (zoFRAN 4MG INJ) 4 mg Q6H PRN IVP NAUSEA/VOMITING 05/12/25 11:30 06/11/25 11:29 05/12/25 17:33 Pantoprazole Sodium (PROTonix 40MG TAB) 40 mg DAILY PO 05/13/25 09:00 06/12/25 08:59 05/13/25 08:56 Phenazopyridine HCl (PYRIdium HCL 200 MG TAB) 200 mg Q8H PRN PO bladder spams 05/12/25 11:30 06/11/25 11:29 05/12/25 11:30 Piperacillin Sod/ Tazobactam Sod (Zosyn 3.375gm+NS 50ml) 3.375 gm Q8H IVPB 05/12/25 21:30 05/22/25 13:59 05/13/25 05:07 Piperacillin Sod/ Tazobactam Sod (Zosyn 3.375gm+NS 50ml) 3.375 gm TID IVPB 05/12/25 14:00 05/12/25 21:29 DC 05/12/25 20:42 Tamsulosin HCl (FloMAX) 0.4 mg HS PO 05/12/25 21:00 06/11/25 20:59 05/12/25 20:42 DIAGNOSTICS / RADIOLOGY: [ ] ASSESSMENT: Complicated urinary tract infection, POA Poor oral intake with associated nausea, POA History of orthostasis, POA BPH, POA GERD, POA PLAN: Complicated urinary tract infection -Patient will be admitted to medical-surgical floor under telemetry monitoring -Patient continues on IV Zosyn -Infectious disease consulted. We will continue to follow their recommendations. -CT abdomen pelvis without contrast for further evaluation of the bladder and kidneys pending -Zofran 4 mg IV q.6 hours PRN for nausea/vomiting BPH Patient to continue with home dose of Flomax for management of BPH History of orthostasis Patient to continue with fludrocortisone for management of orthostasis - GI prophylaxis: Protonix - DVT prophylaxis: Lovenox JANN MOORE MD May 13, 2025 12:13
--- NOTE | 2025-05-13 14:04 | NUR ---
DCP: INITIAL ASSESSMENT Patient lives with spouse, Toña Hutchins. He has no home services or DME. Patient is able to complete ADLs independently and drives. PCP is Fernie Crocker. Pharmacy is [facility]. Patient voiced no safety concerns regarding returning home and states he has no difficulty with housing or buying food. DCP is home. Addendum: 05/13/25 at 1406 by ESVIN WU SS Amended: Links added.
[2025-05-14] VITALS (12 sets, daily range): BP systolic 124–194; BP diastolic 58–104; PULSE 58–70; RESP 16–20; TEMP 97.4–98.2; O2SAT 98
[2025-05-14 04:42] LABS: IMMATURE GRANULOCYTE ABSOLUTE 0.03 K/uL (0-1); NUCLEATED RED BLOOD CELLS 0.0 % (0.0-0.19); PLATELET COUNT (AUTO) 232 K/uL (130-400); RED BLOOD CELL COUNT(AUTO) 4.78 MIL/uL (4.50-6.20); RED CELL DISTRIBUTION WIDTH 13.0 % (11.0-15.5); WHITE BLOOD COUNT (AUTO) 6.1 K/uL (4.8-10.8)
[2025-05-14 04:54] LABS: ASPARTATE AMINOTRANSFERASE 20.0 U/L (10-37); CREATININE 1.0 mg/dL (0.5-1.3); GLOMERULAR FILTR. RATE CALC 79.0 mL/min (>90); GLUCOSE,RANDOM 108.0 mg/dL (70-105); SODIUM SERUM 138.0 mmol/L (136-145); TOTAL PROTEIN, SERUM 6.1 g/dL (6.0-8.3); UREA NITROGEN, BLOOD 10.0 mg/dL (7-18)
--- NOTE | 2025-05-14 12:25 | NUR ---
US CANCELLED Phone call received from Shirlene Wright regarding ordered procedure: Ultrasound Transrectal. Per Ms. Wright, the procedure is not performed in this facility and will be cancelled. Will notify physician.
[2025-05-14] MEDS: amLODIPine 2.5 MG TAB PO ONE (13:04)
--- NOTE | 2025-05-14 13:42 | PN ---
[facility] PROGRESS NOTE Date of Service: May 14, 2025 Time of Service: 13:41 SUBJECTIVE: A 74-year-old male with underlying history of orthostasis, GERD, BPH, who presented to the ER for further evaluation of urinary frequency, dysuria, lower back pain and suprapubic discomfort ongoing for the past 5-7 days. Symptoms have been progressive and patient reports having subjective chills and family reports that he was having low-grade fever yesterday. Oral intake has been poor and patient reports having nausea as well. Denies previous history of UTI. Reports that he was recently diagnosed with BPH and was started on Flomax couple of weeks ago. Patient denies any previous history of hypertension. Reports having history of orthostasis and has been maintained on outpatient treatment with fludrocortisone. Denies any active chest pain or shortness of breath. On presentation to the hospital, patient was noted to be afebrile with T-max of 98.1 F, heart rate of 64, blood pressure 148/82. Labs on presentation showed WBC count of 8400, hemoglobin of 15.1, platelet count of 702557. BMP showed sodium of 137, potassium 4.4, chloride of 98, BUN of 13, creatinine 1.2, blood glucose of 111. Urinalysis showed findings of leukocyte esterase noted to be positive, significant pyuria and bacteriuria. Patient will be admitted for further treatment management of complicated UTI. Patient started on IV hydration due to underlying nausea, will be started on IV antibiotics. We will obtain a further evaluation with CT abdomen pelvis without contrast for further evaluation of complicated UTI. 05/13: Patient was seen and examined this morning at bedside. The patient r eports significant improvement in symptoms. The denies chest pain, shortness of breath, nausea, vomiting, fever. and chills. Patient continues on IV Zosyn, as per infectious disease recommendations. CT abdomen and pelvis results are pending. 05/14/25: Patient was seen and examined at the bedside in room 428. Patient had no acute events overnight however admits to having increased nausea and a headache associated with periorbital pain, with an intensity of 5-6. Patient also reports increased stool frequency which is contrary to constipation that he had prior to admission. Overnight blood pressure was elevated with SBP in 190s and 5 mg of hydralazine was given however his morning systolic blood pressure was still elevated over 160. His fludrocortisone was reduced to 0.05 mg and a PO dose of metoprolol tartrate 12.5 mg was administered. One time dose of Norvasc 2.5 mg was also given. Repeat blood pressure was 148/75. He also admits to having rn outpatient surgery heartburn for which P.o. Protonix was changed to IV Protonix 40 mg b.i.d. One dose of 30 mg IV Toradol was administered for his headache. We will consider increasing the dose of amlodipine or holding fludrocortisone entirely if blood pressure is persistently elevated. We will follow up with abdominal CT findings and urine cultures. REVIEW OF SYSTEMS CONSTITUTIONAL: Denies fevers, chills, or night sweats. No unintentional weight loss reported. NEUROLOGICAL: Admits to headaches headache. Denies motor weakness, sensory deficit, vertigo/spinning sensation, gait abnormalities, or tremors. ENT: No hearing loss, otalgia, otorrhea, rhinitis, rhinorrhea, hoarseness, or sore throat. CARDIOVASCULAR: Denies any exertional angina, dyspnea on exertion, orthopnea, paroxysmal nocturnal dyspnea, palpitations, life-threatening arrhythmias, claudication. PULMONARY: Denies any shortness of breath, cough, phlegm/sputum, hemoptysis, pleuritic chest pain. GASTROINTESTINAL: patient and family reports having nausea and increased bowel movements today. GENITOURINARY: Admits to suprapubic pain, urinary frequency, urgency, incontinence PHYSICAL EXAM GENERAL APPEARANCE: The patient is awake, alert, and oriented, in no acute cardiopulmonary distress. NEUROLOGICAL: Cranial nerves II-XII grossly intact. Motor is 5/5 in bilateral upper and lower extremities proximal to distal. No sensory deficits. HEENT: Face is symmetric. Pupils are equal and reactive. Extraocular movements are intact. NECK: Supple. No JVD. No thyromegaly. No submental, submandibular, pre- /postauricular, occipital or supraclavicular lymphadenopathy. CHEST: Normal chest expansion. No Telemetry. LUNGS: Absence of any rales, rhonchi or any wheezing. CARDIOVASCULAR: Regular. S1 and S2 normal. No appreciable rubs, murmurs or gallops. ABDOMEN: Soft, nontender, and nondistended. There is no rebound, voluntary guarding, or rigidity. Mild tenderness to palpation of the suprapubic region, no CVA tenderness noted : Deferred. No Garay. EXTREMITIES: Non-edematous and not cyanotic. No clubbing. Good capillary refill. SKIN: No skin breakdown. Vital Signs (last 8hr) Date Time Temp Pulse Resp B/P (MAP) Pulse Ox O2 Delivery O2 Flow Rate FiO2 05/14/25 11:12 97.9 59 16 148/75 99 Room Air 05/14/25 07:54 60 167/88 05/14/25 07:53 97.3 65 16 192/95 99 Room Air LABS: Laboratory: Test 05/14/25 04:02 Range/Units White Blood Count 6.1 4.8-10.8 K/uL Red Blood Count 4.78 4.50-6.20 MIL/uL Hemoglobin 13.6 L 14.0-18.0 g/dL Hematocrit 39.9 L 42-54 % Mean Corpuscular Volume 83.5 79-99 fL Mean Corpuscular Hemoglobin 28.5 27.0-33.0 pg Mean Corpuscular Hemoglobin Concent 34.1 32.0-36.0 g/dL Red Cell Distribution Width 13.0 11.0-15.5 % Platelet Count 232 130-400 K/uL Mean Platelet Volume 10.9 H 7.5-10.5 fL Immature Granulocyte % (Auto) 0.5 0-1 % Neutrophils (%) (Auto) 56.0 40.0-77.0 % Lymphocytes (%) (Auto) 24.2 21.0-51.0 % Monocytes (%) (Auto) 15.6 H 3.0-13.0 % Eosinophils (%) (Auto) 3.0 0.0-8.0 % Basophils (%) (Auto) 0.7 0.0-5.0 % Neutrophils # (Auto) 3.4 1.8-7.7 K/uL Lymphocytes # (Auto) 1.5 1.0-4.8 K/uL Monocytes # (Auto) 1.0 0.1-1.0 K/uL Eosinophils # (Auto) 0.18 0.00-0.70 K/uL Basophils # (Auto) 0.04 0.00-0.20 K/uL Absolute Immature Granulocyte (auto 0.03 0-1 K/uL Nucleated Red Blood Cells 0.0 0.0-0.19 % White Cell Morphology Comment See comments Sodium Level 138 136-145 mmol/L Potassium Level 4.0 3.5-5.1 mmol/L Chloride Level 104 101-111 mmol/L Carbon Dioxide Level 27 21-32 mmol/L Blood Urea Nitrogen 10 7-18 mg/dL Creatinine 1.0 0.5-1.3 mg/dL Glomerular Filtration Rate Calc 79 >90 mL/min Random Glucose 108 H 70-105 mg/dL Total Calcium 8.6 8.5-10.1 mg/dL Total Bilirubin 0.7 0.2-1.0 mg/dL Aspartate Amino Transf (AST/SGOT) 20 10-37 U/L Alanine Aminotransferase (ALT/SGPT) 19 12-78 U/L Alkaline Phosphatase 52 50-136 U/L Total Protein 6.1 6.0-8.3 g/dL Albumin 2.8 L 3.5-5.0 g/dL Procalcitonin 2.81 H 0.05-0.5 ng/mL Current Medications Medications (Trade) Dose Ordered Sig/Chandan Route PRN Reason Start Time Stop Time Status Last Admin Dose Admin Acetaminophen (TYLenol 325MG TAB) 650 mg Q6H PRN PO MILD PAIN (1-3) 05/12/25 11:00 05/12/25 11:09 DC Acetaminophen (TYLenol 325MG TAB) 650 mg Q6H PRN PO MILD PAIN (1-3) 05/12/25 11:30 06/11/25 11:29 05/14/25 13:16 650 MG Ceftriaxone Sodium (ROCEphine 1G INJ) 1 gm BID IVPB 05/12/25 21:00 05/12/25 11:38 DC Enoxaparin Sodium (Lovenox) 30 mg DAILY SQ 05/13/25 09:00 06/12/25 08:59 05/14/25 08:56 30 MG Fludrocortisone Acetate (Fludrocortisone Acetate) 0.05 mg DAILY PO 05/15/25 09:00 06/14/25 08:59 Fludrocortisone Acetate (Fludrocortisone Acetate) 0.1 mg DAILY PO 05/13/25 09:00 05/14/25 12:12 DC 05/14/25 08:52 0.1 MG Hydralazine HCl (APRESOLine 20MG INJ) 5 mg Q6H PRN IV ADMINISTER FOR SBP > 170 10/11/25 11:30 05/14/25 12:12 DC 05/14/25 03:57 5 MG Hydralazine HCl (APRESOLine 20MG INJ) 10 mg Q6H PRN IV ADMINISTER FOR SBP > 170 05/14/25 17:30 06/13/25 17:29 Lactated Ringer's 1,000 ml @ 75 mls/hr [id number] IV 05/12/25 11:00 06/11/25 10:59 05/13/25 05:10 75 MLS/HR Metoprolol Tartrate (loprESSOR) 6.25 mg ONCE PRN PO IF SBP GREATER THAN 160 05/14/25 09:30 05/14/25 09:15 DC Metoprolol Tartrate (loprESSOR) 12.5 mg ONCE PRN PO IF SBP GREATER THAN 160 05/14/25 08:30 05/14/25 08:26 DC Ondansetron HCl (zoFRAN 4MG INJ) 4 mg Q6H PRN IVP NAUSEA/VOMITING 05/12/25 11:30 06/11/25 11:29 05/14/25 13:15 4 MG Pantoprazole Sodium (PROTonix 40MG INJ) 40 mg BID IVP 05/14/25 18:00 06/13/25 17:59 Pantoprazole Sodium (PROTonix 40MG TAB) 40 mg DAILY PO 05/13/25 09:00 05/14/25 12:12 DC 05/14/25 08:53 40 MG Phenazopyridine HCl (PYRIdium HCL 200 MG TAB) 200 mg Q8H PRN PO bladder spams 05/12/25 11:30 06/11/25 11:29 05/12/25 11:30 200 MG Piperacillin Sod/ Tazobactam Sod (Zosyn 3.375gm+NS 50ml) 3.375 gm Q8H IVPB 05/12/25 21:30 05/22/25 13:59 05/14/25 13:05 3.375 GM Piperacillin Sod/ Tazobactam Sod (Zosyn 3.375gm+NS 50ml) 3.375 gm TID IVPB 05/12/25 14:00 05/12/25 21:29 DC 05/12/25 20:42 3.375 GM Tamsulosin HCl (FloMAX) 0.4 mg HS PO 05/12/25 21:00 06/11/25 20:59 05/13/25 20:34 0.4 MG DIAGNOSTICS / RADIOLOGY: [ ] ASSESSMENT: Complicated urinary tract infection, POA Poor oral intake with associated nausea, POA Hypertensive urgency History of orthostasis, POA BPH, POA GERD, POA PLAN: Complicated urinary tract infection -Patient will be admitted to medical-surgical floor under telemetry monitoring -preliminary urine culture showed a colony count greater than [id number] CFU per mL and Gram-negative rods. Identification and sensitivity to follow -Patient continues on IV Zosyn -Infectious disease consulted. We will continue to follow their recommendations. -CT abdomen pelvis without contrast for further evaluation of the bladder and kidneys pending -Zofran 4 mg IV q.6 hours PRN for nausea/vomiting Hypertensive urgency with a headache -Patient's blood pressure was 192/95 around 8:00 a.m. this morning -Start amlodipine at low dose, 2.5 mg once daily and titrate up if needed -Continue PRN Hydralazine if SBP >170 -IV Toradol 30 mg improved headache and blood pressure to 156/84. -Reduced the fludrocortisone dose to 0.05 mg once daily, will consider holding for persistently high BP. BPH -Patient to continue with home dose of Flomax for management of BPH -patient requested an evaluation with the urologist while inpatient however was explained that a consult can not be placed unless there is an acute emergency -patient requested evaluation of prostate size and transrectal ultrasound was ordered however it was not available at the our facility. We will wait for the CT abdomen and pelvis reading to evaluate prostate enlargement. History of orthostasis -Patient to continue with fludrocortisone at half dose of 0.05 mg once daily -Will obtain orthostatic vitals once stable -Continue fall precautions GERD -Continue IV Protonix 40 mg b.i.d. DVT prophylaxis: Lovenox ATTESTATION BY PHYSICIAN I have seen and examined the patient. I reviewed the documentation, medical decision making, and treatment plan as noted by the resident physician above. I agree with the findings and plan of care. PRAVIN LAN MD, HARSHAVARDHA MD May 14, 2025 13:42
--- NOTE | 2025-05-14 15:35 | NUR ---
NURSE PRACTITIONER KIMBERING Alexandra Marie at patient bedside. New order received for one time dose of Toradol 30mg. Pending return call from Dr. Schaffer regarding request for prn medication to cover moderate and severe pain.
--- NOTE | 2025-05-14 16:00 | NUR ---
NEW ORDERS RECEIVED PAIN MANAGEMENT Dr. Schaffer returned call. New orders received for coverage of moderate, severe levels of pain. Informed patient and spouse.
--- NOTE | 2025-05-14 16:50 | NUR ---
PHYSICIAN ROUNDING Dr. Schaffer on unit. Reported effectiveness of ordered Toradol. Blood pressure rechecked, 156/84. Doctor reports that the team will discuss changes in medications/doses. Patient with diagnosis of [place]'s disease and prescribed Fludocortisone acetate with side effect of increasing blood pressure particularly in supine position. Patient notified. Will continue to monitor.
--- NOTE | 2025-05-14 17:00 | NUR ---
BLOOD PRESSURE 156/84 Patient reports headache has significantly improved. One hour assessment post administration of Toradol 30mg noted patient reporting pain at 0/10. Blood pressure has improved as well.
--- NOTE | 2025-05-14 21:08 | HMCIMG ---
EXAM: CT Abdomen and Pelvis Without IV contrast CLINICAL HISTORY: complicated UTI, hx of BPH, suprapubis discomfort TECHNIQUE: Axial computed tomography images of the abdomen and pelvis without intravenous contrast. CONTRAST: No IV contrast. COMPARISON: Study dated 11/22/07. FINDINGS: LUNG BASES: Dependent airway disease along bilateral lower lobes, presumed to represent basal atelectasis. No pleural effusions are seen. LIVER: The liver is enlarged, and the right lobe of the liver measures 16.2 cm. GALLBLADDER AND BILE DUCTS: The gallbladder appears within normal limits. No radioopaque gallstones are seen. No biliary ductal dilatation is evident. PANCREAS: Unremarkable. SPLEEN: The spleen is enlarged and measures 12.8 cm. ADRENAL GLANDS: Unremarkable. KIDNEYS, URETERS, AND BLADDER: Mild bilateral perinephric fat stranding is concerning for renal parenchymal disease. There is no hydronephrosis or hydroureter. No urinary calculi are seen. STOMACH AND BOWEL: Small sliding hiatus hernia. Colonic diverticulosis without diverticulitis. No evidence of bowel obstruction. No evidence suggesting enteritis or colitis. Bilateral small inguinal hernia. APPENDIX: No evidence of acute appendicitis on CT examination. PERITONEUM: No free fluid. No free air. LYMPH NODES: No lymphadenopathy is evident. REPRODUCTIVE: Mild prostatomegaly. VASCULATURE: Atherosclerotic changes in the form of eccentric vessel wall calcification in the abdominal aorta and its major branches. No evidence of abdominal aortic aneurysm. BONES: Degenerative changes in the visualized spine in the form of marginal osteophytes and degenerative discs at multiple lumbar levels. No aggressive appearing osseous lesion. No acute osseous pathology evident. IMPRESSION: No acute process in the abdomen or pelvis. No renal, ureteral, or bladder calculus. Mild bilateral perinephric fat stranding concerning for renal parenchymal disease. Mild prostatomegaly. Mild hepatic splenomegaly. Uncomplicated colonic diverticula. Overall, there is an interval worsening compared to the previous examination. /[place]
--- NOTE | 2025-05-14 21:49 | PN ---
INFECTIOUS DISEASE PROGRESS NOTE Date of Service: May 14, 2025 SUBJECTIVE: This is a 74-year-old male patient who was seen at bedside in room 428. During rounding with patient today he was experiencing a throbbing headache. Stated that he was given Tylenol earlier with no relief. The Blood pressure however was checked and it was high at 194/104. Patient had been given amlodipine 2 hours before. We will give Toradol 30 mg IV x1 dose for the throbbing headache and nursing to give medication for high blood pressure. Patient denying nausea or vomiting. No fever, temperature is 97.9. Patient continues on Zosyn IV for urinary tract infection. No growth reported on the urine culture results yet. Reported still having some frequent urination but no dysuria or hematuria. Patient's visiting at bedside. PHYSICAL EXAM EYES: Anicteric. Pupils equal and reactive. HENT: No oral thrush seen, moist Oral mucosa. Throbbing headache. NECK: Supple, no JVD or thyromegaly. LUNGS: Good air entry. No rales, no rhonchi. CARDIOVASCULAR: S1, S2 regular. No murmur heard. ABDOMEN: Soft, non tender, bowel sounds present, no organomegaly. CENTRAL NERVOUS SYSTEM: Awake, alert, oriented x 3. SKIN: No rashes, no swelling. LYMPHATICS: No peripheral lymphadenopathy. MUSCULOSKELETAL: No joint swelling, erythema or tenderness. EXTREMITIES: No cyanosis or clubbing BACK: No deformity, no pressure ulcer. GENITOURINARY: No dysuria or hematuria. Having frequent urination. Vital Sign (Last 12 Hours) 05/14/25 05/14/25 05/14/25 05/14/25 11:12 15:49 17:00 19:36 Temp 97.9 98.1 Pulse 59 58 76 Resp 16 20 B/P (MAP) 148/75 194/104 154/86 181/93 Pulse Ox 99 99 O2 Delivery Room Air Room Air 05/14/25 05/14/25 20:00 20:16 Temp 97.9 Pulse 62 Resp 20 B/P (MAP) 175/86 124/58 Pulse Ox 97 O2 Delivery Room Air Intake & Output (last 24hrs) 05/13/25 05/13/25 05/14/25 15:00 23:00 07:00 Intake Total 700 ml 460 ml Balance 700 ml 460 ml LABS: Laboratory: Test 05/14/25 04:02 Range/Units White Blood Count 6.1 4.8-10.8 K/uL Red Blood Count 4.78 4.50-6.20 MIL/uL Hemoglobin 13.6 L 14.0-18.0 g/dL Hematocrit 39.9 L 42-54 % Mean Corpuscular Volume 83.5 79-99 fL Mean Corpuscular Hemoglobin 28.5 27.0-33.0 pg Mean Corpuscular Hemoglobin Concent 34.1 32.0-36.0 g/dL Red Cell Distribution Width 13.0 11.0-15.5 % Platelet Count 232 130-400 K/uL Mean Platelet Volume 10.9 H 7.5-10.5 fL Immature Granulocyte % (Auto) 0.5 0-1 % Neutrophils (%) (Auto) 56.0 40.0-77.0 % Lymphocytes (%) (Auto) 24.2 21.0-51.0 % Monocytes (%) (Auto) 15.6 H 3.0-13.0 % Eosinophils (%) (Auto) 3.0 0.0-8.0 % Basophils (%) (Auto) 0.7 0.0-5.0 % Neutrophils # (Auto) 3.4 1.8-7.7 K/uL Lymphocytes # (Auto) 1.5 1.0-4.8 K/uL Monocytes # (Auto) 1.0 0.1-1.0 K/uL Eosinophils # (Auto) 0.18 0.00-0.70 K/uL Basophils # (Auto) 0.04 0.00-0.20 K/uL Absolute Immature Granulocyte (auto 0.03 0-1 K/uL Nucleated Red Blood Cells 0.0 0.0-0.19 % White Cell Morphology Comment See comments Sodium Level 138 136-145 mmol/L Potassium Level 4.0 3.5-5.1 mmol/L Chloride Level 104 101-111 mmol/L Carbon Dioxide Level 27 21-32 mmol/L Blood Urea Nitrogen 10 7-18 mg/dL Creatinine 1.0 0.5-1.3 mg/dL Glomerular Filtration Rate Calc 79 >90 mL/min Random Glucose 108 H 70-105 mg/dL Total Calcium 8.6 8.5-10.1 mg/dL Total Bilirubin 0.7 0.2-1.0 mg/dL Aspartate Amino Transf (AST/SGOT) 20 10-37 U/L Alanine Aminotransferase (ALT/SGPT) 19 12-78 U/L Alkaline Phosphatase 52 50-136 U/L Total Protein 6.1 6.0-8.3 g/dL Albumin 2.8 L 3.5-5.0 g/dL Procalcitonin 2.81 H 0.05-0.5 ng/mL ASSESSMENT: Urinary tract infection. Sepsis. Hypertensive urgency. Headache. PLAN: Continue Zosyn. We will follow up on the urine culture results. Give Toradol 30 mg IV x1 dose. Continue antihypertensive. Monitor electrolytes. This case was reviewed and discussed with my supervising physician Dr. Petty and the above assessment and plan was formulated and agreed upon. ATTESTATION BY PHYSICIAN I have seen and examined the patient. I reviewed the documentation, medical decision making, and treatment plan as noted by the mid-level provider above. I agree with the findings and plan of care. DANISH PETTY MD, [facility] May 14, 2025 21:49
[2025-05-15] VITALS (10 sets, daily range): BP systolic 109–189; BP diastolic 55–95; PULSE 60–78; RESP 16–20; TEMP 98–98.3; O2SAT 96–97
[2025-05-15 03:39] LABS: IMMATURE GRANULOCYTE ABSOLUTE 0.01 K/uL (0-1); NUCLEATED RED BLOOD CELLS 0.0 % (0.0-0.19); PLATELET COUNT (AUTO) 237 K/uL (130-400); RED BLOOD CELL COUNT(AUTO) 4.68 MIL/uL (4.50-6.20); RED CELL DISTRIBUTION WIDTH 13.1 % (11.0-15.5); WHITE BLOOD COUNT (AUTO) 5.6 K/uL (4.8-10.8)
[2025-05-15 03:53] LABS: CREATININE 1.1 mg/dL (0.5-1.3); GLOMERULAR FILTR. RATE CALC 71.0 mL/min (>90); GLUCOSE,RANDOM 112.0 mg/dL (70-105); SODIUM SERUM 138.0 mmol/L (136-145); UREA NITROGEN, BLOOD 11.0 mg/dL (7-18)
[2025-05-15] MEDS: amLODIPine 2.5 MG TAB PO SCH (09:21)
[2025-05-15] MEDS: FLUDROCORTISONE ACETATE 0.1 MG TABLET PO SCH (09:21)
[2025-05-15] MEDS: PoTASSium chloRIDE 20MEQ ER 20 MEQ ERTAB PO ONE (13:42)
--- NOTE | 2025-05-15 14:51 | NUR ---
NURSING NOTE: DISCHARGE ANTICIPATED TODAY, 05/15/25 Phone call placed to physical therapy for evaluation for safe discharge disposition. Orthostatic vital signs to be taken and recorded in chart. Dr. Elizabeth has cleared for discharge and patient will be discharged on oral antibiotics.
--- NOTE | 2025-05-15 15:55 | PN ---
[facility] PROGRESS NOTE Date of Service: May 15, 2025 Time of Service: 15:41 SUBJECTIVE: A 74-year-old male with underlying history of orthostasis, GERD, BPH, who presented to the ER for further evaluation of urinary frequency, dysuria, lower back pain and suprapubic discomfort ongoing for the past 5-7 days. Symptoms have been progressive and patient reports having subjective chills and family reports that he was having low-grade fever yesterday. Oral intake has been poor and patient reports having nausea as well. Denies previous history of UTI. Reports that he was recently diagnosed with BPH and was started on Flomax couple of weeks ago. Patient denies any previous history of hypertension. Reports having history of orthostasis and has been maintained on outpatient treatment with fludrocortisone. Denies any active chest pain or shortness of breath. On presentation to the hospital, patient was noted to be afebrile with T-max of 98.1 F, heart rate of 64, blood pressure 148/82. Labs on presentation showed WBC count of 8400, hemoglobin of 15.1, platelet count of 616569. BMP showed sodium of 137, potassium 4.4, chloride of 98, BUN of 13, creatinine 1.2, blood glucose of 111. Urinalysis showed findings of leukocyte esterase noted to be positive, significant pyuria and bacteriuria. Patient will be admitted for further treatment management of complicated UTI. Patient started on IV hydration due to underlying nausea, will be started on IV antibiotics. We will obtain a further evaluation with CT abdomen pelvis without contrast for further evaluation of complicated UTI. 05/13: Patient was seen and examined this morning at bedside. The patient r eports significant improvement in symptoms. The denies chest pain, shortness of breath, nausea, vomiting, fever. and chills. Patient continues on IV Zosyn, as per infectious disease recommendations. CT abdomen and pelvis results are pending. 05/14/25: Patient was seen and examined at the bedside in room 428. Patient had no acute events overnight however admits to having increased nausea and a headache associated with periorbital pain, with an intensity of 5-6. Patient also reports increased stool frequency which is contrary to constipation that he had prior to admission. Overnight blood pressure was elevated with SBP in 190s and 5 mg of hydralazine was given however his morning systolic blood pressure was still elevated over 160. His fludrocortisone was reduced to 0.05 mg and a PO dose of metoprolol tartrate 12.5 mg was administered. One time dose of Norvasc 2.5 mg was also given. Repeat blood pressure was 148/75. He also admits to having group home heartburn for which P.o. Protonix was changed to IV Protonix 40 mg b.i.d. One dose of 30 mg IV Toradol was administered for his headache. We will consider increasing the dose of amlodipine or holding fludrocortisone entirely if blood pressure is persistently elevated. We will follow up with abdominal CT findings and urine cultures. 05/15/2025: Patient was evaluated bedside in room 428. Patient had no acute events overnight and reports much improvement with his headache with Toradol. Patient's blood pressure has also stabilized and has been maintained in the range of 120-140 for systolic blood pressure. Patient's urine cultures showed growth of Klebsiella pneumonia which is pansensitive. Patient's potassium was low, 3.1 which is replaced with 40 meq of oral potassium chloride. His CT scan of abdomen and pelvis showed mild prostatomegaly, perinephric fat stranding an uncomplicated diverticular disease. Patient denies urinary frequency, dysuria, suprapubic pain, dizziness, chest pain and shortness of breath. We will discharge the patient tomorrow based on ID recommendations. REVIEW OF SYSTEMS CONSTITUTIONAL: Denies fevers, chills, or night sweats. No unintentional weight loss reported. NEUROLOGICAL: Admits to headaches headache. Denies motor weakness, sensory deficit, vertigo/spinning sensation, gait abnormalities, or tremors. ENT: No hearing loss, otalgia, otorrhea, rhinitis, rhinorrhea, hoarseness, or sore throat. CARDIOVASCULAR: Denies any exertional angina, dyspnea on exertion, orthopnea, paroxysmal nocturnal dyspnea, palpitations, life-threatening arrhythmias, claudication. PULMONARY: Denies any shortness of breath, cough, phlegm/sputum, hemoptysis, pleuritic chest pain. GASTROINTESTINAL: patient and family reports having nausea and increased bowel movements today. GENITOURINARY: Suprapubic pain, urinary frequency, urgency, incontinence, all of them have improved PHYSICAL EXAM GENERAL APPEARANCE: The patient is awake, alert, and oriented, in no acute cardiopulmonary distress. NEUROLOGICAL: Cranial nerves II-XII grossly intact. Motor is 5/5 in bilateral upper and lower extremities proximal to distal. No sensory deficits. HEENT: Face is symmetric. Pupils are equal and reactive. Extraocular movements are intact. NECK: Supple. No JVD. No thyromegaly. No submental, submandibular, pre- /postauricular, occipital or supraclavicular lymphadenopathy. CHEST: Normal chest expansion. No Telemetry. LUNGS: Absence of any rales, rhonchi or any wheezing. CARDIOVASCULAR: Regular. S1 and S2 normal. No appreciable rubs, murmurs or gallops. ABDOMEN: Soft, nontender, and nondistended. There is no rebound, voluntary guarding, or rigidity. Mild tenderness to palpation of the suprapubic region, now improved no CVA tenderness noted : Deferred. No Garay. EXTREMITIES: Non-edematous and not cyanotic. No clubbing. Good capillary refill. SKIN: No skin breakdown. Vital Signs (last 8hr) Date Time Temp Pulse Resp B/P (MAP) Pulse Ox O2 Delivery O2 Flow Rate FiO2 05/15/25 11:06 98.1 70 16 126/73 99 Room Air 05/15/25 08:14 98.2 62 20 148/87 98 Room Air LABS: Laboratory: Test 05/15/25 03:07 05/14/25 04:02 Range/Units White Blood Count 5.6 4.8-10.8 K/uL Red Blood Count 4.68 4.50-6.20 MIL/uL Hemoglobin 13.3 L 14.0-18.0 g/dL Hematocrit 39.2 L 42-54 % Mean Corpuscular Volume 83.8 79-99 fL Mean Corpuscular Hemoglobin 28.4 27.0-33.0 pg Mean Corpuscular Hemoglobin Concent 33.9 32.0-36.0 g/dL Red Cell Distribution Width 13.1 11.0-15.5 % Platelet Count 237 130-400 K/uL Mean Platelet Volume 10.3 7.5-10.5 fL Immature Granulocyte % (Auto) 0.2 0-1 % Neutrophils (%) (Auto) 57.8 40.0-77.0 % Lymphocytes (%) (Auto) 24.9 21.0-51.0 % Monocytes (%) (Auto) 12.3 3.0-13.0 % Eosinophils (%) (Auto) 3.7 0.0-8.0 % Basophils (%) (Auto) 1.1 0.0-5.0 % Neutrophils # (Auto) 3.3 1.8-7.7 K/uL Lymphocytes # (Auto) 1.4 1.0-4.8 K/uL Monocytes # (Auto) 0.7 0.1-1.0 K/uL Eosinophils # (Auto) 0.21 0.00-0.70 K/uL Basophils # (Auto) 0.06 0.00-0.20 K/uL Absolute Immature Granulocyte (auto 0.01 0-1 K/uL Nucleated Red Blood Cells 0.0 0.0-0.19 % Sodium Level 138 136-145 mmol/L Potassium Level 3.2 L 3.5-5.1 mmol/L Chloride Level 104 101-111 mmol/L Carbon Dioxide Level 26 21-32 mmol/L Blood Urea Nitrogen 11 7-18 mg/dL Creatinine 1.1 0.5-1.3 mg/dL Glomerular Filtration Rate Calc 71 >90 mL/min Random Glucose 112 H 70-105 mg/dL Total Calcium 8.5 8.5-10.1 mg/dL White Cell Morphology Comment See comments Total Bilirubin 0.7 0.2-1.0 mg/dL Aspartate Amino Transf (AST/SGOT) 20 10-37 U/L Alanine Aminotransferase (ALT/SGPT) 19 12-78 U/L Alkaline Phosphatase 52 50-136 U/L Total Protein 6.1 6.0-8.3 g/dL Albumin 2.8 L 3.5-5.0 g/dL Procalcitonin 2.81 H 0.05-0.5 ng/mL Current Medications Medications (Trade) Dose Ordered Sig/Chandan Route PRN Reason Start Time Stop Time Status Last Admin Dose Admin Acetaminophen (TYLenol 325MG TAB) 650 mg Q6H PRN PO MILD PAIN (1-3) 05/12/25 11:00 05/12/25 11:09 DC Acetaminophen (TYLenol 325MG TAB) 650 mg Q6H PRN PO MILD PAIN (1-3) 05/12/25 11:30 06/11/25 11:29 05/15/25 02:54 650 MG Amlodipine Besylate (NorvASC 2.5MG TAB) 2.5 mg DAILY PO 05/15/25 09:00 05/18/25 09:00 05/15/25 09:21 2.5 MG Ceftriaxone Sodium (ROCEphine 1G INJ) 1 gm BID IVPB 05/12/25 21:00 05/12/25 11:38 DC Enoxaparin Sodium (Lovenox) 30 mg DAILY SQ 05/13/25 09:00 06/12/25 08:59 05/15/25 09:20 30 MG Fludrocortisone Acetate (Fludrocortisone Acetate) 0.05 mg DAILY PO 05/15/25 09:00 06/14/25 08:59 05/15/25 09:21 0.05 MG Fludrocortisone Acetate (Fludrocortisone Acetate) 0.1 mg DAILY PO 05/13/25 09:00 05/14/25 12:12 DC 05/14/25 08:52 0.1 MG Hydralazine HCl (APRESOLine 20MG INJ) 5 mg Q6H PRN IV ADMINISTER FOR SBP > 170 05/12/25 11:30 05/14/25 12:12 DC 05/14/25 03:57 5 MG Hydralazine HCl (APRESOLine 20MG INJ) 10 mg Q6H PRN IV ADMINISTER FOR SBP > 170 05/14/25 17:30 06/13/25 17:29 05/14/25 19:36 10 MG Ketorolac Tromethamine (toRADol) 15 mg Q6H PRN IM MODERATE PAIN (4-6) 05/14/25 16:00 05/15/25 09:05 DC 05/15/25 05:37 15 MG Ketorolac Tromethamine (toRADol) 15 mg Q6H PRN IV MODERATE PAIN (4-6) 05/15/25 09:30 05/19/25 15:59 05/15/25 14:23 15 MG Lactated Ringer's 1,000 ml @ 75 mls/hr [id number] IV 05/12/25 11:00 05/15/25 11:14 DC 05/13/25 05:10 75 MLS/HR Metoprolol Tartrate (loprESSOR) 6.25 mg ONCE PRN PO IF SBP GREATER THAN 160 05/14/25 09:30 05/14/25 09:15 DC Metoprolol Tartrate (loprESSOR) 12.5 mg ONCE PRN PO IF SBP GREATER THAN 160 05/14/25 08:30 05/14/25 08:26 DC Morphine Sulfate (morPHINE 4MG SYG) 1 mg Q4H PRN IVP SEVERE PAIN (7-10) 05/14/25 16:00 05/21/25 15:59 Ondansetron HCl (zoFRAN 4MG INJ) 4 mg Q6H PRN IVP NAUSEA/VOMITING 05/12/25 11:30 06/11/25 11:29 05/14/25 13:15 4 MG Pantoprazole Sodium (PROTonix 40MG INJ) 40 mg BID IVP 05/14/25 18:00 06/13/25 17:59 05/15/25 09:18 40 MG Pantoprazole Sodium (PROTonix 40MG TAB) 40 mg DAILY PO 05/13/25 09:00 05/14/25 12:12 DC 05/14/25 08:53 40 MG Phenazopyridine HCl (PYRIdium HCL 200 MG TAB) 200 mg Q8H PRN PO bladder spams 05/12/25 11:30 06/11/25 11:29 05/12/25 11:30 200 MG Piperacillin Sod/ Tazobactam Sod (Zosyn 3.375gm+NS 50ml) 3.375 gm Q8H IVPB 05/12/25 21:30 05/22/25 13:59 05/15/25 13:42 3.375 GM Piperacillin Sod/ Tazobactam Sod (Zosyn 3.375gm+NS 50ml) 3.375 gm TID IVPB 05/12/25 14:00 05/12/25 21:29 DC 05/12/25 20:42 3.375 GM Tamsulosin HCl (FloMAX) 0.4 mg HS PO 05/12/25 21:00 06/11/25 20:59 05/14/25 20:55 0.4 MG DIAGNOSTICS / RADIOLOGY: [ ] PATIENT: ADIA MCNAMARA MR#: [id number] : 1950 SEX: M AGE: 74 LOCATION: 4DH ORDER 1102 STATUS: ADM IN REPORT#: [id number] SERVICE 1100 REASON: complicated UTI, hx of BPH, suprapubis discomfort ORDERING PHYSICIAN: OLIVA WARREN MD PROCEDURE: ABD PEL WO - CT ABDOMEN/PELVIS W/O CONTRAST EXAM: CT Abdomen and Pelvis Without IV contrast CLINICAL HISTORY: complicated UTI, hx of BPH, suprapubis discomfort TECHNIQUE: Axial computed tomography images of the abdomen and pelvis without intravenous contrast. CONTRAST: No IV contrast. COMPARISON: Study dated 11/22/07. FINDINGS: LUNG BASES: Dependent airway disease along bilateral lower lobes, presumed to represent basal atelectasis. No pleural effusions are seen. LIVER: The liver is enlarged, and the right lobe of the liver measures 16.2 cm. GALLBLADDER AND BILE DUCTS: The gallbladder appears within normal limits. No radioopaque gallstones are seen. No biliary ductal dilatation is evident. PANCREAS: Unremarkable. SPLEEN: The spleen is enlarged and measures 12.8 cm. ADRENAL GLANDS: Unremarkable. KIDNEYS, URETERS, AND BLADDER: Mild bilateral perinephric fat stranding is concerning for renal parenchymal disease. There is no hydronephrosis or hydroureter. No urinary calculi are seen. STOMACH AND BOWEL: Small sliding hiatus hernia. Colonic diverticulosis without diverticulitis. No evidence of bowel obstruction. No evidence suggesting enteritis or colitis. Bilateral small inguinal hernia. APPENDIX: No evidence of acute appendicitis on CT examination. PERITONEUM: No free fluid. No free air. LYMPH NODES: No lymphadenopathy is evident. REPRODUCTIVE: Mild prostatomegaly. VASCULATURE: Atherosclerotic changes in the form of eccentric vessel wall calcification in the abdominal aorta and its major branches. No evidence of abdominal aortic aneurysm. BONES: Degenerative changes in the visualized spine in the form of marginal osteophytes and degenerative discs at multiple lumbar levels. No aggressive appearing osseous lesion. No acute osseous pathology evident. IMPRESSION: No acute process in the abdomen or pelvis. No renal, ureteral, or bladder calculus. Mild bilateral perinephric fat stranding concerning for renal parenchymal disease. Mild prostatomegaly. Mild hepatic splenomegaly. Uncomplicated colonic diverticula. Overall, there is an interval worsening compared to the previous examination. /[place] DICTATED BY: JOSE MANUEL AMAYA Jr., MD DATE: 05/14/252206 ELECTRONICALLY SIGNED BY: JOSE MANUEL AMAYA Jr., MD DATE: 05/14/252206 ASSESSMENT: Complicated urinary tract infection, POA Poor oral intake with associated nausea, POA Hypertensive urgency, resolved History of orthostasis, POA BPH, POA GERD, POA PLAN: Complicated urinary tract infection -Patient will be admitted to medical-surgical floor under telemetry monitoring -urine culture showed a colony count greater than [id number] CFU per mL and had infection with Klebsiella pneumoniae, pansensitive except for nitrofurantoin -Patient continues on IV Zosyn, we will consider switching to Keflex tomorrow upon discharge -CT abdomen pelvis without contrast for showed no acute findings, mild prostatomegaly, perinephric fat stranding an uncomplicated diverticular disease -Zofran 4 mg IV q.6 hours PRN for nausea/vomiting Hypertensive urgency with a headache, resolved -Patient's blood pressure was 192/95 around 8:00 a.m. this morning -continue amlodipine 2.5 mg once daily and upon discharge -Continue PRN Hydralazine if SBP >170 -IV Toradol 15 mg PRN for headaches -Reduced the fludrocortisone dose to 0.05 mg once daily, we will maintain at current BPH - CT scan on 05/13/2025 showed mild prostatomegaly -continue Flomax 0.4 mg HS -patient requested an evaluation with the urologist while inpatient however was explained that a consult can not be placed unless there is an acute emergency -start finasteride 5 mg once daily History of orthostasis -Patient to continue with fludrocortisone at half dose of 0.05 mg once daily -Will obtain orthostatic vitals once stable -Continue fall precautions GERD -Continue IV Protonix 40 mg b.i.d. DVT prophylaxis: Lovenox ATTESTATION BY PHYSICIAN I have seen and examined the patient. I reviewed the documentation, medical decision making, and treatment plan as noted by the resident physician above. I agree with the findings and plan of care. PRAVIN LAN MD, HARSHAVARDHA MD May 15, 2025 15:55
[2025-05-15] MEDS ORDERED: PHARMACY COMMUNICATION MISC SCH (20:30)
--- NOTE | 2025-05-15 22:03 | PN ---
INFECTIOUS DISEASE PROGRESS NOTE Date of Service: May 15, 2025 SUBJECTIVE: This is a 74-year-old male patient who was seen at bedside in room 428. Patient continues on Zosyn IV for urinary tract infection. The final urine culture results came back positive with Klebsiella Pneumonia. We will continue on Zosyn IV. Plan is to discharge home on oral antibiotics when ready to discharge. Blood pressure has been controlled this morning with the last reading of 126/73. Patient denying headache and in good spirits. Patient's visiting at bedside. PHYSICAL EXAM EYES: Anicteric. Pupils equal and reactive. HENT: No oral thrush seen, moist Oral mucosa. Throbbing headache. NECK: Supple, no JVD or thyromegaly. LUNGS: Good air entry. No rales, no rhonchi. CARDIOVASCULAR: S1, S2 regular. No murmur heard. ABDOMEN: Soft, non tender, bowel sounds present, no organomegaly. CENTRAL NERVOUS SYSTEM: Awake, alert, oriented x 3. SKIN: No rashes, no swelling. LYMPHATICS: No peripheral lymphadenopathy. MUSCULOSKELETAL: No joint swelling, erythema or tenderness. EXTREMITIES: No cyanosis or clubbing BACK: No deformity, no pressure ulcer. GENITOURINARY: No dysuria or hematuria. Having frequent urination. Vital Sign (Last 12 Hours) 05/15/25 05/15/25 05/15/25 05/15/25 11:06 16:00 16:05 16:10 Temp 98.1 98.1 Pulse 70 63 65 78 Resp 16 20 B/P (MAP) 126/73 189/79 181/89 141/82 Pulse Ox 99 100 O2 Delivery Room Air Room Air 05/15/25 20:00 Temp 98.1 Pulse 60 Resp 18 B/P (MAP) 167/95 Pulse Ox 96 O2 Delivery Room Air Intake & Output (last 24hrs) 05/14/25 05/14/25 05/15/25 15:00 23:00 07:00 Intake Total 1150.0 ml 110.0 ml Balance 1150.0 ml 110.0 ml LABS: Laboratory: Test 05/15/25 03:07 05/14/25 04:02 Range/Units White Blood Count 5.6 4.8-10.8 K/uL Red Blood Count 4.68 4.50-6.20 MIL/uL Hemoglobin 13.3 L 14.0-18.0 g/dL Hematocrit 39.2 L 42-54 % Mean Corpuscular Volume 83.8 79-99 fL Mean Corpuscular Hemoglobin 28.4 27.0-33.0 pg Mean Corpuscular Hemoglobin Concent 33.9 32.0-36.0 g/dL Red Cell Distribution Width 13.1 11.0-15.5 % Platelet Count 237 130-400 K/uL Mean Platelet Volume 10.3 7.5-10.5 fL Immature Granulocyte % (Auto) 0.2 0-1 % Neutrophils (%) (Auto) 57.8 40.0-77.0 % Lymphocytes (%) (Auto) 24.9 21.0-51.0 % Monocytes (%) (Auto) 12.3 3.0-13.0 % Eosinophils (%) (Auto) 3.7 0.0-8.0 % Basophils (%) (Auto) 1.1 0.0-5.0 % Neutrophils # (Auto) 3.3 1.8-7.7 K/uL Lymphocytes # (Auto) 1.4 1.0-4.8 K/uL Monocytes # (Auto) 0.7 0.1-1.0 K/uL Eosinophils # (Auto) 0.21 0.00-0.70 K/uL Basophils # (Auto) 0.06 0.00-0.20 K/uL Absolute Immature Granulocyte (auto 0.01 0-1 K/uL Nucleated Red Blood Cells 0.0 0.0-0.19 % Sodium Level 138 136-145 mmol/L Potassium Level 3.2 L 3.5-5.1 mmol/L Chloride Level 104 101-111 mmol/L Carbon Dioxide Level 26 21-32 mmol/L Blood Urea Nitrogen 11 7-18 mg/dL Creatinine 1.1 0.5-1.3 mg/dL Glomerular Filtration Rate Calc 71 >90 mL/min Random Glucose 112 H 70-105 mg/dL Total Calcium 8.5 8.5-10.1 mg/dL White Cell Morphology Comment See comments Total Bilirubin 0.7 0.2-1.0 mg/dL Aspartate Amino Transf (AST/SGOT) 20 10-37 U/L Alanine Aminotransferase (ALT/SGPT) 19 12-78 U/L Alkaline Phosphatase 52 50-136 U/L Total Protein 6.1 6.0-8.3 g/dL Albumin 2.8 L 3.5-5.0 g/dL Procalcitonin 2.81 H 0.05-0.5 ng/mL ASSESSMENT: Urinary tract infection with Klebsiella Pneumoniae. Sepsis. Hypertensive urgency. Headache. PLAN: Continue Zosyn. Continue antihypertensive. Will monitor electrolytes. Plan is to discharge home on oral antibiotics when ready to discharge. This case was reviewed and discussed with my supervising physician Dr. Petty and the above assessment and plan was formulated and agreed upon. ATTESTATION BY PHYSICIAN I have seen and examined the patient. I reviewed the documentation, medical decision making, and treatment plan as noted by the mid-level provider above. I agree with the findings and plan of care. DANISH PETTY MD, [facility]TA [facility] May 15, 2025 22:03
[2025-05-16] VITALS: BP 148/89; PULSE 68; RESP 18; TEMP 98.2
[2025-05-16 03:52] LABS: NUCLEATED RED BLOOD CELLS 0.0 % (0.0-0.19); PLATELET COUNT (AUTO) 232.0 K/uL (130-400); RED BLOOD CELL COUNT(AUTO) 4.84 MIL/uL (4.50-6.20); RED CELL DISTRIBUTION WIDTH 13.0 % (11.0-15.5); WHITE BLOOD COUNT (AUTO) 6.8 K/uL (4.8-10.8)
[2025-05-16 04:00] VITALS: BP 145/83; PULSE 69; RESP 18; TEMP 98
[2025-05-16 04:11] LABS: CREATININE 1.0 mg/dL (0.5-1.3); GLOMERULAR FILTR. RATE CALC 79.0 mL/min (>90); GLUCOSE,RANDOM 94.0 mg/dL (70-105); SODIUM SERUM 139.0 mmol/L (136-145); UREA NITROGEN, BLOOD 13.0 mg/dL (7-18)
[2025-05-16 08:00] VITALS: BP 152/79; PULSE 67; RESP 18; TEMP 97.8; O2SAT 98
--- NOTE | 2025-05-16 11:38 | DS ---
Discharge Summary Hospital Course Summary: A 74-year-old male with a history of orthostatic hypotension (managed with outpatient fludrocortisone), gastroesophageal reflux disease, and benign prostatic hyperplasia (recently initiated on tamsulosin) presented to the emergency department with progressive urinary frequency, dysuria, lower back pain, and suprapubic discomfort over 57 days. The patient reported subjective chills and poor oral intake with associated nausea; family noted low-grade fever. He denied prior urinary tract infections, hypertension, chest pain, or shortness of breath. On presentation to the hospital, patient was noted to be afebrile with T-max of 98.1 F, heart rate of 64, blood pressure 148/82. Labs on presentation showed WBC count of 8400, hemoglobin of 15.1, platelet count of 525199. BMP showed sodium of 137, potassium 4.4, chloride of 98, BUN of 13, creatinine 1.2, blood glucose of 111. His urinalysis was positive for leukocyte esterase, and numerous pus cells. Urine cultures were sent and patient was started prophylactically on IV Zosyn in the ED. CT scan of abdomen and pelvis showed no acute process however mild bilateral perinephric stranding concerning for renal parenchymal disease, mild prostatomegaly and uncomplicated colonic diverticula were seen. During hospitalization patient continued to receive IV Zosyn. While in the hospital patient also developed hypertensive urgency associated with headache and blood pressures running over 190/100. His fludrocortisone dose was reduced to half, 0.05 mg. Patient's headache was relieved with IV Toradol which also reduced his blood pressure. Despite resolution of headache patient continued to have hypertension for which and low-dose amlodipine at 2.5 mg was added. Orthostatic vitals were conducted during hospitalization that revealed greater than 40 mmHg from supine to standing however patient did not have dizziness from sitting to standing and also while walking around the hallway. An extensive conversation was performed with the patient regarding balancing orthostasis with fludrocortisone and maintaining optimal blood pressure with antihypertensive as fludrocortisone was known to cause supine hypertension. Patient was also started on 5 mg of finasteride for BPH. Patient responded well to the antibiotics and reported resolution of urinary symptoms. Patient will be discharged home with oral cephalexin 500 mg b.i.d. for 10 days. Patient was encouraged to follow up with his PCP in 3-5 days and discuss regarding optimizing his hypertensive medication regimen. Patient was encouraged to drink plenty of fluids, avoid lifting heavy weights, avoid hot baths, and avoid excessive time outdoors in the sun. Patient is educated on red flag signs like increasing fever, chills, abdominal pain, back pain and return to ED if needed. Chief Engineer Research(s): Dr. Elizabeth, Infectious Disease Infectious disease was consulted for complicated UTI in this patient which showed growth of Klebsiella pneumoniae in his urine. Patient was treated with IV Zosyn and discharged home on p.o. cephalexin for 10 days. Procedure(s): PATIENT: ADIA MCNAMARA MR#: [id number] : 1950 SEX: M AGE: 74 LOCATION: [facility], [facility] ORDER 110 STATUS: ADM IN REPORT#: [id number] SERVICE 1100 REASON: complicated UTI, hx of BPH, suprapubis discomfort ORDERING PHYSICIAN: OLIVA WARREN MD PROCEDURE: ABD PEL WO - CT ABDOMEN/PELVIS W/O CONTRAST EXAM: CT Abdomen and Pelvis Without IV contrast CLINICAL HISTORY: complicated UTI, hx of BPH, suprapubis discomfort TECHNIQUE: Axial computed tomography images of the abdomen and pelvis without intravenous contrast. CONTRAST: No IV contrast. COMPARISON: Study dated 11/22/07. FINDINGS: LUNG BASES: Dependent airway disease along bilateral lower lobes, presumed to represent basal atelectasis. No pleural effusions are seen. LIVER: The liver is enlarged, and the right lobe of the liver measures 16.2 cm. GALLBLADDER AND BILE DUCTS: The gallbladder appears within normal limits. No radioopaque gallstones are seen. No biliary ductal dilatation is evident. PANCREAS: Unremarkable. SPLEEN: The spleen is enlarged and measures 12.8 cm. ADRENAL GLANDS: Unremarkable. KIDNEYS, URETERS, AND BLADDER: Mild bilateral perinephric fat stranding is concerning for renal parenchymal disease. There is no hydronephrosis or hydroureter. No urinary calculi are seen. STOMACH AND BOWEL: Small sliding hiatus hernia. Colonic diverticulosis without diverticulitis. No evidence of bowel obstruction. No evidence suggesting enteritis or colitis. Bilateral small inguinal hernia. APPENDIX: No evidence of acute appendicitis on CT examination. PERITONEUM: No free fluid. No free air. LYMPH NODES: No lymphadenopathy is evident. REPRODUCTIVE: Mild prostatomegaly. VASCULATURE: Atherosclerotic changes in the form of eccentric vessel wall calcification in the abdominal aorta and its major branches. No evidence of abdominal aortic aneurysm. BONES: Degenerative changes in the visualized spine in the form of marginal osteophytes and degenerative discs at multiple lumbar levels. No aggressive appearing osseous lesion. No acute osseous pathology evident. IMPRESSION: No acute process in the abdomen or pelvis. No renal, ureteral, or bladder calculus. Mild bilateral perinephric fat stranding concerning for renal parenchymal disease. Mild prostatomegaly. Mild hepatic splenomegaly. Uncomplicated colonic diverticula. Overall, there is an interval worsening compared to the previous examination. /[place] DICTATED BY: JOSE MANUEL AMAYA Jr., MD DATE: 05/14/252206 ELECTRONICALLY SIGNED BY: JOSE MANUEL AMAYA Jr., MD DATE: 05/14/252206 Assessment/Plan: ASSESSMENT: Complicated urinary tract infection, resolved Poor oral intake with associated nausea, resolved Hypertensive urgency, resolved History of orthostasis Benign Prostatic hyperplasia GERD Discharge Instructions: ADMISSION DATE :05/12/25 DISCHARGE DATE:05/16/25 DISPOSITION : Home CONDITION : Stable [employer]ET [employer] MECHANIC(S) : Dr. Elizabeth, Infectious disease FOLLOW UP APPOINTMENT(S) : f/u with PCP in one 3-5 days PROCEDURES: None IMAGING (S) : report attached to summary MICROBIOLOGY : report attached to summary ACTIVITY : ad sahara HOME MEDICATIONS : Continued, Fludrocortisone 0.05 mg. Home Medications: Active Scripts Cephalexin Monohydrate (Keflex) 500 Mg Cap, 1 CAP PO BID for 7 Days, #20 CAP 0 Refills Prov:ANDRES ROGERS MD 05/16/25 Amlodipine Besylate (Norvasc 2.5MG Tab) 2.5 Mg Tablet, 1 TAB PO DAILY for 30 Days, #30 TAB 0 Refills Prov:ANDRES ROGERS MD 05/16/25 Fludrocortisone Acetate (Fludrocortisone Acetate) 0.1 Mg Tablet, 0.05 MG PO DAILY for 30 Days, #30 TAB Prov:ANDRES ROGERS MD 05/16/25 Reported Medications Tamsulosin HCl (Flomax) 0.4 Mg Cap.er.24h, 0.4 MG PO HS, CAPSULE. 05/12/25 Pantoprazole Sodium (Protonix) 40 Mg Tablet., 40 MG PO AM, TAB 02/01/17 Discontinued Reported Medications Fludrocortisone Acetate (Fludrocortisone Acetate) 0.1 Mg Tablet, 0.1 MG PO DAILY, TAB 05/12/25 New Medications: Amlodipine Besylate (Norvasc 2.5MG Tab) 2.5 Mg Tablet 1 TAB PO DAILY for 30 Days, #30 TAB 0 Refills Cephalexin Monohydrate (Keflex) 500 Mg Cap 1 CAP PO BID for 7 Days, #20 CAP 0 Refills Fludrocortisone Acetate (Fludrocortisone Acetate) 0.1 Mg Tablet 0.05 MG PO DAILY for 30 Days, #30 TAB Continued Medications: Pantoprazole Sodium (Protonix) 40 Mg Tablet. 40 MG PO AM, TAB Tamsulosin HCl (Flomax) 0.4 Mg Cap.er.24h 0.4 MG PO HS, CAPSULE. Discontinued Medications: Fludrocortisone Acetate (Fludrocortisone Acetate) 0.1 Mg Tablet 0.1 MG PO DAILY, TAB Time spent arranging discharge: 1-30 minutes ATTESTATION BY PHYSICIAN I have seen and examined the patient. I reviewed the documentation, medical decision making, and treatment plan as noted by the resident physician above. I agree with the findings and plan of care. PRAVIN LAN MD, HARSHAVARDHA MD May 16, 2025 11:38
[2025-05-16 12:00] VITALS: BP 161/87; PULSE 63; RESP 18; TEMP 97.7
--- NOTE | 2025-05-16 12:11 | NUR ---
REMOVED IV CATH DRESSING TO REMOVAL SITE MAXIMUS WELL DC INSTRUCTIONS GIVEN VERBAL UNDERSTANDING DC Paprers signed
[2025-05-16] MEDS ORDERED: FLUD0.1T2 PO (12:29)
[2025-05-16] MEDS ORDERED: AMLO2.5T2 PO (12:31)
[2025-05-16] MEDS ORDERED: CEPH500B PO ×2 (12:33→18:25)
--- NOTE | 2025-05-16 12:54 | NUR ---
rprt to [facility] fro transportation Addendum: 05/16/25 at 1320 by JOHN CHRISTOPHER LVN LVN incorrect pt
--- NOTE | 2025-05-16 13:20 | NUR ---
[facility] escorted off unit via [facility] to front of hospital stable cond
--- NOTE | 2025-05-16 14:23 | PN ---
INFECTIOUS DISEASE PROGRESS NOTE Date of Service: May 16, 2025 SUBJECTIVE: This is a 74-year-old male patient who was seen at bedside in room 428. Patient is afebrile this morning, temperature is 97.7. From Infectious Disease standpoint patient can be discharged on cephalexin p.o. for 10 days. Pr escription was written. PHYSICAL EXAM EYES: Anicteric. Pupils equal and reactive. HENT: No oral thrush seen, moist Oral mucosa. Throbbing headache. NECK: Supple, no JVD or thyromegaly. LUNGS: Good air entry. No rales, no rhonchi. CARDIOVASCULAR: S1, S2 regular. No murmur heard. ABDOMEN: Soft, non tender, bowel sounds present, no organomegaly. CENTRAL NERVOUS SYSTEM: Awake, alert, oriented x 3. SKIN: No rashes, no swelling. LYMPHATICS: No peripheral lymphadenopathy. MUSCULOSKELETAL: No joint swelling, erythema or tenderness. EXTREMITIES: No cyanosis or clubbing BACK: No deformity, no pressure ulcer. GENITOURINARY: No dysuria or hematuria. Having frequent urination. Vital Sign (Last 12 Hours) 05/16/25 05/16/25 05/16/25 05/16/25 04:00 08:00 08:00 12:00 Temp 98.1 97.9 97.7 Pulse 69 67 63 Resp 18 18 18 B/P (MAP) 145/83 152/79 161/87 Pulse Ox 94 98 98 96 O2 Delivery Room Air Room Air Room Air* Room Air O2 Flow Rate 0 FiO2 21 Intake & Output (last 24hrs) 05/15/25 05/15/25 05/16/25 15:00 23:00 07:00 Intake Total 1250.0 ml 100.0 ml Output Total 125 ml Balance 1250.0 ml -25.0 ml LABS: Laboratory: Test 05/16/25 03:36 05/15/25 03:07 Range/Units White Blood Count 6.8 4.8-10.8 K/uL Red Blood Count 4.84 4.50-6.20 MIL/uL Hemoglobin 13.7 L 14.0-18.0 g/dL Hematocrit 40.7 L 42-54 % Mean Corpuscular Volume 84.1 79-99 fL Mean Corpuscular Hemoglobin 28.3 27.0-33.0 pg Mean Corpuscular Hemoglobin Concent 33.7 32.0-36.0 g/dL Red Cell Distribution Width 13.0 11.0-15.5 % Platelet Count 232 130-400 K/uL Mean Platelet Volume 9.8 7.5-10.5 fL Nucleated Red Blood Cells 0.0 0.0-0.19 % Sodium Level 139 136-145 mmol/L Potassium Level 4.0 3.5-5.1 mmol/L Chloride Level 104 101-111 mmol/L Carbon Dioxide Level 30 21-32 mmol/L Blood Urea Nitrogen 13 7-18 mg/dL Creatinine 1.0 0.5-1.3 mg/dL Glomerular Filtration Rate Calc 79 >90 mL/min Random Glucose 94 70-105 mg/dL Total Calcium 8.2 L 8.5-10.1 mg/dL Immature Granulocyte % (Auto) 0.2 0-1 % Neutrophils (%) (Auto) 57.8 40.0-77.0 % Lymphocytes (%) (Auto) 24.9 21.0-51.0 % Monocytes (%) (Auto) 12.3 3.0-13.0 % Eosinophils (%) (Auto) 3.7 0.0-8.0 % Basophils (%) (Auto) 1.1 0.0-5.0 % Neutrophils # (Auto) 3.3 1.8-7.7 K/uL Lymphocytes # (Auto) 1.4 1.0-4.8 K/uL Monocytes # (Auto) 0.7 0.1-1.0 K/uL Eosinophils # (Auto) 0.21 0.00-0.70 K/uL Basophils # (Auto) 0.06 0.00-0.20 K/uL Absolute Immature Granulocyte (auto 0.01 0-1 K/uL ASSESSMENT: Urinary tract infection with Klebsiella Pneumoniae. Sepsis. Hypertensive urgency. Headache. PLAN: From Infectious Disease standpoint patient can be discharged on cephalexin p.o. for 10 days. Prescription was written. This case was reviewed and discussed with my supervising physician Dr. Petty and the above assessment and plan was formulated and agreed upon. ATTESTATION BY PHYSICIAN I have seen and examined the patient. I reviewed the documentation, medical decision making, and treatment plan as noted by the mid-level provider above. I agree with the findings and plan of care. DANISH PETTY MD, MIRTA L [facility] May 16, 2025 14:23
[2025-05-16] MEDS ORDERED: FINA5TAB41 PO (18:25)
== END 2025-05-16 13:30 | disposition home or self-care (01) | DRG 872 ==
LOC: EDH 09:48 → EDHIP 11:05 → 4DH 15:35
PROVIDERS: ADMIT Internal Medicine; ATTEND Internal Medicine
DX: A41.9 Sepsis, unspecified organism (principal); N39.0 Urinary tract infection, site not specified; N40.0 Benign prostatic hyperplasia without lower urinary tract symptoms; K21.9 Gastro-esophageal reflux disease without esophagitis; I16.0 Hypertensive urgency; E66.9 Obesity, unspecified; E78.00 Pure hypercholesterolemia, unspecified; B96.1 Klebsiella pneumoniae [K. pneumoniae] as the cause of diseases classified elsewhere; F17.290 Nicotine dependence, other tobacco product, uncomplicated; I10 Essential (primary) hypertension; K59.00 Constipation, unspecified; Z79.899 Other long term (current) drug therapy; Z68.23 Body mass index [BMI] 23.0-23.9, adult
CPT/HCPCS: 36415; 74176; 80048; 80053; 80076; 81001; 83036; 83615; 84145; 84443; 85025; 85027; 85610; 85651; 85730; 86140; 87086; 87186; 96365; 99285; G0378; J0360; J0696; J1650; J1885; J2405; J2470; J2543; J7030